=== PATIENT | female | born 1950 | race Caucasian/White ===

== ENCOUNTER 2019-07-30 14:00 | Outpatient (RCR) | payer MEDICARE, OTHER ==
[~2019-07-30 14:00] MED LIST: ALEVE220 M1; ASPIR-LOW81 MG PO; BENADRYL25 M1 PO; CINNAMON500 MG PO; CLONAZEPAM0.5 MG PO; CRESTOR5 MG PO; CYCLOBENZAPRINE5 MG PO; INVOKANA PO; LEXAPRO10 MG PO; LIPITOR20 MG PO; LISINOPRIL10 MG PO; LISINOPRIL2.5 MG PO; METFORMIN HCL500 MG PO; OMEPRAZOLE20 M1 PO; PANTOPRAZOLE SO20 MG PO; TRIAMTERENE; TURMERIC1 GM PO; TYLENOL PO; TYLENOL WITH C1 EACH PO; XARELTO10 MG PO
== END 2019-07-31 ==
LOC: PT 14:00
PROVIDERS: ATTEND Specialist
DX: M25.551 Pain in right hip (principal); M25.651 Stiffness of right hip, not elsewhere classified; M62.81 Muscle weakness (generalized); R26.9 Unspecified abnormalities of gait and mobility

== ENCOUNTER 2019-08-17 14:00 | Outpatient (RCR) | payer MEDICARE, OTHER | END 2019-08-31 | LOC: PT 14:00 | PROVIDERS: ATTEND Specialist | DX: M70.71 Other bursitis of hip, right hip (principal); S72.001A Fracture of unspecified part of neck of right femur, initial encounter for closed fracture | CPT/HCPCS: 97139 ==

== ENCOUNTER 2020-01-05 13:21 | Inpatient (IN) | payer MEDICARE, OTHER ==
[~2020-01-05] VITALS: Ht 162.6 cm; Wt 70.8 kg
[2020-01-05] MEDS ORDERED: MORPHINE SULFATE 2 MG/ML SYR 1ML IV STA (13:59)
[2020-01-05] MEDS ORDERED: ONDANSETRON HCL INJ 2MG/ML 2ML 2 MG/ML VIAL IV STA (13:59)
[2020-01-05 14:14] LABS: BASOPHILS # (AUTO) 0.1 (0.0-0.1); BASOPHILS % 0.5 % (0.0-1.0); EOSINOPHILS % 0.1 % (0.0-6.0); HEMOGLOBIN 11.1 g/dL (12.0-16.0); LYMPHOCYTES # (AUTO) 1.3 (1.0-3.2); LYMPHOCYTES % 7.5 % (18.0-39.1); MEAN CORPUSCULAR HEMOGLOBIN 26.3 pg (28-32); MEAN CORPUSCULAR HGB CONC 32.6 g/dL (31-35); MEAN CORPUSCULAR VOLUME 80.6 fL (81-99); MONOCYTES # (AUTO) 0.5 (0.2-0.8); MONOCYTES % 2.8 % (4.4-11.3); NEUTROPHILS # (AUTO) 15.3 (2.1-6.9); NEUTROPHILS % 88.6 % (38.7-80.0); PLATELET COUNT 271 x10e3/uL (140-360); RED BLOOD COUNT 4.22 x10e6/uL (3.6-5.1); RED CELL DISTRIBUTION WIDTH 15.1 % (11.7-14.4)
--- OUTSIDE RECORDS SUMMARY | 2020-01-05 14:25 | XMS REPORT | Continuity of Care Document ---
Author Author [facility] t Organization [facility] Address [address] [place] [address] Phone Unavailable Care Team Providers Care Health And Wellness Advisor Name Role Phone NORAH BOSWELL DO PCP LUPILLO RUDOLPH Attdurans Unavailable BUDDY MAY Attphys Unavailable LUPILLO RUDOLPH Admphys Unavailable Payers Payer Name Policy Type Policy Number Effective Date Expiration Date S cathy Miscellaneous Ppo [id number] 2019 00:00:00 [facility] Medicare A & B [id number] 2013 00:00:00 [facility] Miscellaneous Indemnity [id number] 2019 00:00:00 [facility] Problems Condition Name Condition Details Condition Category Status Onset Date Resolution Date Last Treatment Date Treating Clinician Comments Source Diabetes mellitus Diabetes Problem Active [facility] Fall Fall Problem Active [facility] Closed intertrochanteric fracture of femur Intertrochanteric fx- closed Problem Active [facility] Allergies, Adverse Reactions, Alerts Allergy Name Allergy Type Status Severity Reaction(s) Onset Date Inacti ve Date Treating Clinician Comments Source codeine DA Active U 2014-01-03 00:00:00 [facility] penicillin G DA Active U 2014-01-03 00:00:00 [facility] Penicillin Allergy to Substance Active 2013-11-18 00:00:00 [facility] Codeine Allergy to Substance Active Mild ITCHY 2013-11-18 00:00:00 [facility] Medications Ordered Medication Name Filled Medication Name Start Date Stop Da te Current Medication? Ordering Clinician Indication Dosage Frequency Signature (SIG) Comments Components Source Acetaminophen With Codeine (Tylenol With Codeine #3 Ta blet) 1 Each Tablet Acetaminophen With Codeine (Tylenol With Codeine #3 Tablet) 1 Each Tablet Yes 300 Q4-6 as needed for Mild Pain (1-3) Or Fe edwina>100.8 [facility] Atorvastatin Calcium (Lipitor) 20 Mg Tablet Atorvastat in Calcium (Lipitor) 20 Mg Tablet Yes 20 Bedtime [facility] Cinnamon Bark (Cinnamon) 500 Mg Capsule Cinnamon Bark (Cinna mon) 500 Mg Capsule Yes 500 Every 12 Hours [facility] Clonazepam 0.5 Mg Tablet Clonazepam 0.5 Mg Tablet Yes .5 Bedtime [facility] Diphenhydramine Hcl (Benadryl) 25 Mg Capsule Diphenhyd ramine Hcl (Benadryl) 25 Mg Capsule Yes 25 Every 6 Hours as needed for Itching [facility] Diphenhydramine Hcl (Benadryl) 25 Mg Capsule Diphenhyd ramine Hcl (Benadryl) 25 Mg Capsule Yes 25 Use As Directed as needed f or Itching [facility] Escitalopram Oxalate (Lexapro) 10 Mg Tablet Escitalopr am Oxalate (Lexapro) 10 Mg Tablet Yes 10 Daily [facility] Lisinopril 10 Mg Tablet Lisinopril 10 Mg Tablet Yes 10 Daily [facility] Metformin Hcl 500 Mg Tablet Metformin Hcl 500 Mg Tablet Yes 500 Twice A Day [facility] Pantoprazole Sodium 20 Mg Tablet. Pantoprazole Sodium 20 Mg Tablet. Yes 40 Daily@0600 [facility] Rivaroxaban (Xarelto) 10 Mg Tablet Rivaroxaban (Xarelto) 10 Mg Tablet Yes 10 Daily [facility] Triamterene Triamterene Yes 75 C HI [facility] Turmeric 1 Gm Powder, 750 Mg Oral Turmeric 1 Gm Powder, 750 Mg O ral 2019-06-07 00:00:00 No 750 Daily [facility] Cyclobenzaprine Hcl (Flexeril) 5 Mg Tablet, 5 Mg Oral Cyclobenzaprine Hcl (Flexeril) 5 Mg Tablet, 5 Mg Oral 2019-04-05 00:00:00 No 5 Daily [facility] Invokana , 100 Mg Oral Invokana , 100 Mg Oral 2019-04-05 00:00:0 0 No 100 Daily [facility] Omeprazole 20 Mg Tablet., 20 Mg Oral Omeprazole 20 Mg Tablet.vazquez savage, 20 Mg Oral 2019-04-05 00:00:00 No 20 Daily [facility] Tylenol , 500 Mg Oral Tylenol , 500 Mg Oral 2019-04-05 00:00:00 No [address] [facility] Rosuvastatin Calcium (Crestor) 5 Mg Tablet, 5 Mg Oral Rosuvastatin Calcium (Crestor) 5 Mg Tablet, 5 Mg Oral 2016-03-15 00:00:00 No 5 Daily [facility] Aspirin (Aspir-Low) 81 Mg Tablet., 81 Mg Oral Aspiri n (Aspir-Low) 81 Mg Tablet., 81 Mg Oral 2014-04-18 00:00:00 No 81 Da marquise [facility] Lisinopril 2.5 Mg Tablet, 2.5 Mg Oral Lisinopril 2.5 Mg Tablet, 2.5 Mg Oral 2014-04-18 00:00:00 No 2.5 Daily [facility] Naproxen Sodium (Aleve) 220 Mg Capsule, Naproxen Sodium (Leana ve) 220 Mg Capsule, 2014-04-18 00:00:00 No Twice A Day [facility] Procedures Procedure Date / Time Performed Performing Clinician [facility] e REMOVAL OF SUPPORT IMPLANT 2019-06-09 00:00:00 LUPILLO RUDOLPH [facility] X-ray of chest, two views 2019-04-05 00:00:00 LUPILLO RUDOLPH [facility] Encounters Start Date/Time End Date/Time Encounter Type Admission Type [facility] Care Department Encounter ID Source 2019-08-02 14:32:00 2019-08-31 23:59:00 Discharged Recurring [facility] [id number] [facility] 2019-07-22 13:12:00 2019-07-31 23:59:00 Discharged Recurring [facility] [id number] [facility] 2019-06-09 09:16:00 2019-06-10 15:06:00 Discharged Inpatient (obs) 3 LUPILLO RUDOLPH [facility] [id number] [facility] 2019-04-05 05:00:00 2019-04-05 05:00:00 Registered Clinic 3 LUPILLO RUDOLPH [facility] [id number] [facility] Results Test Description Test Time Test Comments Results Result Comments Source SCR MAMM BILATERAL SHAMIKA CAD DIGITAL 2019-12-29 08:42:58 - SCR MAMM BILATERAL SHAMIKA CAD DIGITALBILATERAL DIGITAL SCREENING MAMMOGRAM 3D/2D WITH CAD: 12/28/2019CLINICAL: Asymptomatic. Digital breast tomosynthesis was performed in addition to routine CC and MLO views. Current mammographic images were evaluated by either a Power Content M-Vu or a Summify ImageChecker CAD (computer aided detection system). Comparison is made to exams dated 10/02/2018 mammogram, 2017 mammogram, and 08/07/2016 mammogram - [facility]. There are scattered fibroglandular tissues in both breasts. No suspicious mass, architectural distortion, malignant type calcification, or lymph node abnormality detected. Breast architecture is stable compared to prior exams.IMPRESSION: NEGATIVEThere is no mammographic evidence of malignancy. Resume annual screening mammography in one year. Bolivar Jackson M.D. ss/penrad:12/29/2019 08:42:58 Gluing Pressman: Isabella PINTO, [facility] sent: BIRADS 1-2 Normal Mammogram BI-RADS: 1 Nega tive Bedside Glucose 2019-06-10 17:28:00 Test Item Bedside Glucose (test code = 79750-9) 127 70-120 H Meter ID: [id number] Glucose 2019-06-10 17:28:00* Test Item Value Reference Range Interpretation Comments Bedside Glucose (test code = 69327-8) 127 70-120 H Meter ID: [id number] [facility] Glucose 2019-06-10 07:51:00* Test Item Value Reference Range Interpretation Comments Bedside Glucose (test code = 29259-2) 121 70-120 H Meter ID: [id number] [facility]Hemoglobin2020-01-09 06:10:00* Test Item Value Reference Range Interpretation Comments Hemoglobin (test code = 76175-2) 8.6 12.0-16.0 L [facility]ematocrit2020-01-09 06:10:00* Test Item Value Reference Range Interpretation Comments Hematocrit (test code = 4544-3) 27.4 34.2-44.1 L [facility]Hemoglobin2020-01-09 06:10:00* Test Item Value Reference Range Interpretation Comments Hemoglobin (test code = 59450-7) 8.6 12.0-16.0 L [facility]Hematocrit2020-01-09 06:10:00* Test Item Value Reference Range Interpretation Comments Hematocrit (test code = 4544-3) 27.4 34.2-44.1 L [facility]Hemoglobin2020-01-09 06:10:00* Test Item Value Reference Range Interpretation Comments Hemoglobin (test code = 16548-2) 8.6 12.0-16.0 L [facility]Hematocrit2020-01-09 06:10:00* Test Item Value Reference Range Interpretation Comments Hematocrit (test code = 4544-3) 27.4 34.2-44.1 L [facility]HIP RIGHT 2-3 VW (+/- PELVIS)2019-06-09 12:28:00 [place] [address] Patient Name: PARTH KHANNA V MR #: [id number] : 1950 Age/Sex: 68/F Req #: [id number] Adm Physician: LUPILLO RUDOLPH MD Ordered by: LUPILLO RUDOLPH MD Report #: [id number] Location: PACU V Room/Bed: PACU-1 Procedure: 0108-0 021 DX/HIP RIGHT 2-3 VW (+/- PELVIS) Exam Date: Time: REPORT STATUS: Signed R ight hip, 2 views Clinical indication: Postop evaluation Comparison: N o comparisons available for review Impression: Patient is status post rem oval of a right gamma nail. No acute fracture is identified. Signed by: Simone Joel MD on 06/09/2019 12:29 PM Dictated By: SANNA JOEL MD 1229 Transcribed By: JAYSON on 06/09/19 1229 COPY TO: LUPILLO RUDOLPH MD Sodium Level 2019-06-07 16:56:00* Test Item Value Reference Range Interpretation Comments Sodium Level (test code = 2951-2) 136 136-145 [facility]assium Xbgtx9726-45-50 16:56:00* Test Item Value Reference Range Interpretation Comments Potassium Level (test code = 2823-3) 4.2 3.5-5.1 [facility]Chloride Hifrf7207-91-80 16:56:00* Test Item Value Reference Range Interpretation Comments Chloride Level (test code = 2075-0) 99 98-107 [facility]landsCarbon Dioxide Wuucj6394-60-15 16:56:00* Test Item Value Reference Range Interpretation Comments Carbon Dioxide Level (test code = 2028-9) 25 22-29 [facility]landsAnion Idm9135-66-80 16:56:00* Test Item Value Reference Range Interpretation Comments Anion Gap (test code = 25258-7) 16.2 8-16 H [facility]landsBlood Urea Umqhtdgt7842-26-38 16:56:00* Test Item Value Reference Range Interpretation Comments Blood Urea Nitrogen (test code = 3094-0) 38 7-26 H [facility]landsCreatinine2020-01-06 16:56:00* Test Item Value Reference Range Interpretation Comments Creatinine (test code = 2160-0) 1.50 0.57-1.11 H [facility]landsBUN/Creatinine Kakei9945-01-23 16:56:00* Test Item Value Reference Range Interpretation Comments BUN/Creatinine Ratio (test code = 3097-3) 25 6-25 [facility]landsEstimat Glomerular Filtration Rate 2019-06-07 16:56:00* Test Item Value Reference Range Interpretation Comments Estimat Glomerular Filtration Rate (test code = 560302859) 34 >60 L Ranges were taken from the National Kidney Disease Education Program and the [facility] [employer] literature.Reference ranges:60 or greater: Nwpvrb98-84 ( for 3 consecutive months): Chronic kidney disease 15 or less: Kidney failureTexas Children's Hospital The [facility]landsGlucose Gvlve9981-09-13 16:56:00* Test Item Value Reference Range Interpretation Comments Glucose Level (test code = RRI4150) 179 74-118 H [facility]landsCalcium Thqfy9654-19-55 16:56:00* Test Item Value Reference Range Interpretation Comments Calcium Level (test code = 91609-2) 9.6 8.4-10.2 [facility] Texasodium Hvxrm3679-44-32 16:56:00* Test Item Value Reference Range Interpretation Comments Sodium Level (test code = 2951-2) 136 136-145 [facility]Potassium Wblyq2787-41-18 16:56:00* Test Item Value Reference Range Interpretation Comments Potassium Level (test code = 2823-3) 4.2 3.5-5.1 [facility]landsChloride Sumcw0164-23-43 16:56:00* Test Item Value Reference Range Interpretation Comments Chloride Level (test code = 2075-0) 99 98-107 [facility]landsCarbon Dioxide Clgas2239-39-52 16:56:00* Test Item Value Reference Range Interpretation Comments Carbon Dioxide Level (test code = 2028-9) 25 22-29 [facility]landsAnion Iew8155-64-65 16:56:00* Test Item Value Reference Range Interpretation Comments Anion Gap (test code = 15259-6) 16.2 8-16 H [facility]landsBlood Urea Uwmtcips7919-02-01 16:56:00* Test Item Value Reference Range Interpretation Comments Blood Urea Nitrogen (test code = 3094-0) 38 7-26 H [facility]landsCreatinine2020-01-06 16:56:00* Test Item Value Reference Range Interpretation Comments Creatinine (test code = 2160-0) 1.50 0.57-1.11 H [facility]landsBUN/Creatinine Orytt0488-65-03 16:56:00* Test Item Value Reference Range Interpretation Comments BUN/Creatinine Ratio (test code = 3097-3) 25 6-25 [facility]landsEstimat Glomerular Filtration Rate 2019-06-07 16:56:00* Test Item Value Reference Range Interpretation Comments Estimat Glomerular Filtration Rate (test code = 648895310) 34 >60 L Ranges were taken from the National Kidney Disease Education Program and the [facility] [employer] literature.Reference ranges:60 or greater: Wievzs65-63 ( for 3 consecutive months): Chronic kidney disease 15 or less: Kidney failureTexas Children's Hospital [facility]landsGlucose Snhwd6564-67-95 16:56:00* Test Item Value Reference Range Interpretation Comments Glucose Level (test code = GIC5377) 179 74-118 H [facility]landsCalcium Eqosk9243-68-48 16:56:00* Test Item Value Reference Range Interpretation Comments Calcium Level (test code = 85634-9) 9.6 8.4-10.2 [facility] Texasodium Osxdw2993-32-01 16:56:00* Test Item Value Reference Range Interpretation Comments Sodium Level (test code = 2951-2) 136 136-145 [facility]Potassium Ujaiu1295-31-68 16:56:00* Test Item Value Reference Range Interpretation Comments Potassium Level (test code = 2823-3) 4.2 3.5-5.1 [facility]landsChloride Uarhs2501-39-02 16:56:00* Test Item Value Reference Range Interpretation Comments Chloride Level (test code = 2075-0) 99 98-107 [facility]landsCarbon Dioxide Hzczh4451-60-71 16:56:00* Test Item Value Reference Range Interpretation Comments Carbon Dioxide Level (test code = 2028-9) 25 22-29 [facility]landsAnion Kkb8786-57-24 16:56:00* Test Item Value Reference Range Interpretation Comments Anion Gap (test code = 86324-4) 16.2 8-16 H [facility]landsBlood Urea Tnpfjcya3631-54-29 16:56:00* Test Item Value Reference Range Interpretation Comments Blood Urea Nitrogen (test code = 3094-0) 38 7-26 H [facility]landsCreatinine2020-01-06 16:56:00* Test Item Value Reference Range Interpretation Comments Creatinine (test code = 2160-0) 1.50 0.57-1.11 H [facility]landsBUN/Creatinine Oqmek6456-35-75 16:56:00* Test Item Value Reference Range Interpretation Comments BUN/Creatinine Ratio (test code = 3097-3) 25 6-25 [facility]landsEstimat Glomerular Filtration Rate 2019-06-07 16:56:00* Test Item Value Reference Range Interpretation Comments Estimat Glomerular Filtration Rate (test code = 720081599) 34 >60 L Ranges were taken from the National Kidney Disease Education Program and the [facility] literature.Reference ranges:60 or greater: Mazmyw91-62 ( for 3 consecutive months): Chronic kidney disease 15 or less: Kidney failureTexas Children's Hospital The WoodlandsGlucose Gkxay5271-92-38 16:56:00* Test Item Value Reference Range Interpretation Comments Glucose Level (test code = XDH4712) 179 74-118 H [facility]landsCalcium Ehiit0423-82-18 16:56:00* Test Item Value Reference Range Interpretation Comments Calcium Level (test code = 76249-8) 9.6 8.4-10.2 [facility]landsWhite Blood Vnyzu8861-47-57 16:55:00* Test Item Value Reference Range Interpretation Comments White Blood Count (test code = 6690-2) 5.73 4.8-10.8 [facility]landsRed Blood Bdlil7041-07-18 16:55:00* Test Item Value Reference Range Interpretation Comments Red Blood Count (test code = 789-8) 4.57 3.6-5.1 [facility]landsMean Corpuscular Fteqbs1632-04-90 16:55:00* Test Item Value Reference Range Interpretation Comments Mean Corpuscular Volume (test code = 787-2) 83.6 81-99 [facility]landsMean Corpuscular Eozmjmwjbi6052-51-68 16:55:00* Test Item Value Reference Range Interpretation Comments Mean Corpuscular Hemoglobin (test code = 785-6) 26.7 28-32 L [facility]landsMean Corpuscular Hemoglobin Concent 2019-06-07 16:55:00* Test Item Value Reference Range Interpretation Comments Mean Corpuscular Hemoglobin Concent (test code = 786-4) 31.9 31-35 [facility]landsRed Cell Distribution Cqhif4495-83-95 16:55:00* Test Item Value Reference Range Interpretation Comments Red Cell Distribution Width (test code = 12016-1) 15.8 11.7 -14.4 H [facility]landsPlatelet Fykvh3228-32-24 16:55:00* Test Item Value Reference Range Interpretation Comments Platelet Count (test code = 777-3) 247 140-360 [facility]landsNeutrophils (%) (Auto)2019-06-07 16:55:00 * Test Item Value Reference Range Interpretation Comments Neutrophils (%) (Auto) (test code = 59079-1) 57.8 38.7-80.0 [facility]landsLymphocytes (%) (Auto)2019-06-07 16:55:00 * Test Item Value Reference Range Interpretation Comments Lymphocytes (%) (Auto) (test code = 736-9) 34.7 18.0-39.1 [facility]landsMonocytes (%) (Auto)2019-06-07 16:55:00* Test Item Value Reference Range Interpretation Comments Monocytes (%) (Auto) (test code = 5905-5) 5.8 4.4-11.3 [facility]landsEosinophils (%) (Auto)2019-06-07 16:55:00 * Test Item Value Reference Range Interpretation Comments Eosinophils (%) (Auto) (test code = 713-8) 0.9 0.0-6.0 [facility]landsBasophils (%) (Auto)2019-06-07 16:55:00* Test Item Value Reference Range Interpretation Comments Basophils (%) (Auto) (test code = 706-2) 0.5 0.0-1.0 [facility]landsIM GRANULOCYTES %2019-06-07 16:55:00* Test Item Value Reference Range Interpretation Comments IM GRANULOCYTES % (test code = IM GRANULOCYTES %) 0.3 0.0- 1.0 [facility]landsNeutrophils # (Auto)2019-06-07 16:55:00* Test Item Value Reference Range Interpretation Comments Neutrophils # (Auto) (test code = 751-8) 3.3 2.1-6.9 [facility]landsLymphocytes # (Auto)2019-06-07 16:55:00* Test Item Value Reference Range Interpretation Comments Lymphocytes # (Auto) (test code = 05734-9) 2.0 1.0-3.2 [facility]landsMonocytes # (Auto)2019-06-07 16:55:00* Test Item Value Reference Range Interpretation Comments Monocytes # (Auto) (test code = 742-7) 0.3 0.2-0.8 [facility]landsEosinophils # (Auto)2019-06-07 16:55:00* Test Item Value Reference Range Interpretation Comments Eosinophils # (Auto) (test code = 711-2) 0.1 0.0-0.4 [facility]Basophils # (Auto)2019-06-07 16:55:00* Test Item Value Reference Range Interpretation Comments Basophils # (Auto) (test code = 704-7) 0.0 0.0-0.1 [facility]landsAbsolute Immature Granulocyte (auto 2019-06-07 16:55:00* Test Item Value Reference Range Interpretation Comments Absolute Immature Granulocyte (auto (jp t code = Absolute Immature Granulocyte (auto) 0.02 0-0.1 [facility]landsWhite Blood Wnfua6631-95-37 16:55:00* Test Item Value Reference Range Interpretation Comments White Blood Count (test code = 6690-2) 5.73 4.8-10.8 [facility]landsRed Blood Spglc0186-79-11 16:55:00* Test Item Value Reference Range Interpretation Comments Red Blood Count (test code = 789-8) 4.57 3.6-5.1 [facility]landsMean Corpuscular Cebejc6201-68-75 16:55:00* Test Item Value Reference Range Interpretation Comments Mean Corpuscular Volume (test code = 787-2) 83.6 81-99 [facility]landsMean Corpuscular Rhzsuknyla1553-96-38 16:55:00* Test Item Value Reference Range Interpretation Comments Mean Corpuscular Hemoglobin (test code = 785-6) 26.7 28-32 L [facility]landsMean Corpuscular Hemoglobin Concent 2019-06-07 16:55:00* Test Item Value Reference Range Interpretation Comments Mean Corpuscular Hemoglobin Concent (test code = 786-4) 31.9 31-35 [facility]landsRed Cell Distribution Bmapz3164-88-92 16:55:00* Test Item Value Reference Range Interpretation Comments Red Cell Distribution Width (test code = 91408-6) 15.8 11.7 -14.4 H [facility]landsPlatelet Xuolt8504-89-53 16:55:00* Test Item Value Reference Range Interpretation Comments Platelet Count (test code = 777-3) 247 140-360 [facility]landsNeutrophils (%) (Auto)2019-06-07 16:55:00 * Test Item Value Reference Range Interpretation Comments Neutrophils (%) (Auto) (test code = 78762-8) 57.8 38.7-80.0 [facility]landsLymphocytes (%) (Auto)2019-06-07 16:55:00 * Test Item Value Reference Range Interpretation Comments Lymphocytes (%) (Auto) (test code = 736-9) 34.7 18.0-39.1 [facility]landsMonocytes (%) (Auto)2019-06-07 16:55:00* Test Item Value Reference Range Interpretation Comments Monocytes (%) (Auto) (test code = 5905-5) 5.8 4.4-11.3 [facility]landsEosinophils (%) (Auto)2019-06-07 16:55:00 * Test Item Value Reference Range Interpretation Comments Eosinophils (%) (Auto) (test code = 713-8) 0.9 0.0-6.0 [facility]landsBasophils (%) (Auto)2019-06-07 16:55:00* Test Item Value Reference Range Interpretation Comments Basophils (%) (Auto) (test code = 706-2) 0.5 0.0-1.0 [facility]landsIM GRANULOCYTES %2019-06-07 16:55:00* Test Item Value Reference Range Interpretation Comments IM GRANULOCYTES % (test code = IM GRANULOCYTES %) 0.3 0.0- 1.0 [facility]landsNeutrophils # (Auto)2019-06-07 16:55:00* Test Item Value Reference Range Interpretation Comments Neutrophils # (Auto) (test code = 751-8) 3.3 2.1-6.9 [facility]landsLymphocytes # (Auto)2019-06-07 16:55:00* Test Item Value Reference Range Interpretation Comments Lymphocytes # (Auto) (test code = 67905-6) 2.0 1.0-3.2 [facility]landsMonocytes # (Auto)2019-06-07 16:55:00* Test Item Value Reference Range Interpretation Comments Monocytes # (Auto) (test code = 742-7) 0.3 0.2-0.8 [facility]Eosinophils # (Auto)2019-06-07 16:55:00* Test Item Value Reference Range Interpretation Comments Eosinophils # (Auto) (test code = 711-2) 0.1 0.0-0.4 [facility]Basophils # (Auto)2019-06-07 16:55:00* Test Item Value Reference Range Interpretation Comments Basophils # (Auto) (test code = 704-7) 0.0 0.0-0.1 [facility]landsAbsolute Immature Granulocyte (auto 2019-06-07 16:55:00* Test Item Value Reference Range Interpretation Comments Absolute Immature Granulocyte (auto (jp t code = Absolute Immature Granulocyte (auto) 0.02 0-0.1 [facility]landsWhite Blood Zyloc6860-28-80 16:55:00* Test Item Value Reference Range Interpretation Comments White Blood Count (test code = 6690-2) 5.73 4.8-10.8 [facility]landsRed Blood Nzvjy5223-30-02 16:55:00* Test Item Value Reference Range Interpretation Comments Red Blood Count (test code = 789-8) 4.57 3.6-5.1 [facility] Corpuscular [id number] 16:55:00* Test Item Value Reference Range Interpretation Comments Mean Corpuscular Volume (test code = 787-2) 83.6 81-99 [facility] Corpuscular [id number] 16:55:00* Test Item Value Reference Range Interpretation Comments Mean Corpuscular Hemoglobin (test code = 785-6) 26.7 28-32 L [facility] Corpuscular Hemoglobin Concent 2019-06-07 16:55:00* Test Item Value Reference Range Interpretation Comments Mean Corpuscular Hemoglobin Concent (test code = 786-4) 31.9 31-35 [facility] Cell Distribution [id number] 16:55:00* Test Item Value Reference Range Interpretation Comments Red Cell Distribution Width (test code = 19783-8) 15.8 11.7 -14.4 H [facility]landsPlatelet [id number] 16:55:00* Test Item Value Reference Range Interpretation Comments Platelet Count (test code = 777-3) 247 140-360 [facility]landsNeutrophils (%) (Auto)2019-06-07 16:55:00 * Test Item Value Reference Range Interpretation Comments Neutrophils (%) (Auto) (test code = 24665-1) 57.8 38.7-80.0 [facility]landsLymphocytes (%) (Auto)2019-06-07 16:55:00 * Test Item Value Reference Range Interpretation Comments Lymphocytes (%) (Auto) (test code = 736-9) 34.7 18.0-39.1 [facility]ocytes (%) (Auto)2019-06-07 16:55:00* Test Item Value Reference Range Interpretation Comments Monocytes (%) (Auto) (test code = 5905-5) 5.8 4.4-11.3 [facility]Eosinophils (%) (Auto)2019-06-07 16:55:00 * Test Item Value Reference Range Interpretation Comments Eosinophils (%) (Auto) (test code = 713-8) 0.9 0.0-6.0 [facility]ophils (%) (Auto)2019-06-07 16:55:00* Test Item Value Reference Range Interpretation Comments Basophils (%) (Auto) (test code = 706-2) 0.5 0.0-1.0 [facility]landsIM GRANULOCYTES %2019-06-07 16:55:00* Test Item Value Reference Range Interpretation Comments IM GRANULOCYTES % (test code = IM GRANULOCYTES %) 0.3 0.0- 1.0 [facility]landsNeutrophils # (Auto)2019-06-07 16:55:00* Test Item Value Reference Range Interpretation Comments Neutrophils # (Auto) (test code = 751-8) 3.3 2.1-6.9 [facility]landsLymphocytes # (Auto)2019-06-07 16:55:00* Test Item Value Reference Range Interpretation Comments Lymphocytes # (Auto) (test code = 40000-3) 2.0 1.0-3.2 [facility]landsMonocytes # (Auto)2019-06-07 16:55:00* Test Item Value Reference Range Interpretation Comments Monocytes # (Auto) (test code = 742-7) 0.3 0.2-0.8 [facility]Eosinophils # (Auto)2019-06-07 16:55:00* Test Item Value Reference Range Interpretation Comments Eosinophils # (Auto) (test code = 711-2) 0.1 0.0-0.4 [facility]Basophils # (Auto)2019-06-07 16:55:00* Test Item Value Reference Range Interpretation Comments Basophils # (Auto) (test code = 704-7) 0.0 0.0-0.1 [facility]landsAbsolute Immature Granulocyte (auto 2019-06-07 16:55:00* Test Item Value Reference Range Interpretation Comments Absolute Immature Granulocyte (auto (jp t code = Absolute Immature Granulocyte (auto) 0.02 0-0.1 [facility]landsCHEST 2 [id number] 15:33:00 [facility] [address] [place] [address] Patient Name: PARTH KHANNA V MR #: [id number] : 1950 Age/Sex: 68/F Req #: [id number] Adm Physician: Ordered by: LUPILLO RUDOLPH MD Report #: [id number] Location: OR Room/Bed: Procedure: 1104-006 4 DX/CHEST 2 VIEWS Exam Date: 04/05/19 Exam Time: 14 43 REPORT STATUS: Signed EXAMINA TION: CHEST 2 VIEWS INDICATION: Pre-operative COMPARISON: Chest r adiograph of 03/05/2017 FINDINGS: LINES/TUBES:None LUNGS:The lungs are well-inflated. No focal consolidation or pulmonary edema. PLEURA: No pleural effusion or pneumothorax. MEDIASTINUM:The cardiomediastinal silh ouette appears normal in size and shape. BONES/SOFT TISSUES:No acute osseou s injury. ABDOMEN:No free air under the diaphragm. IMPRESSION: N o focal pneumonia or pulmonary edema. Signed by: Perez Salgado MD on 9 3:34 PM Dictated By: PEREZ SALGADO MD 33 Transcribed By: JAYSON on 04/05/191533 COPY TO: LUPILLO RUDOLPH MD FALLOPIAN [id number] 16:28:00 RUN DATE: 10/07/18 [facility] PAGE 1 RUN TIME: 1628 Specimen Inqui sonal RUN USER: INTERFACE PATIENT: PARTH KHANNA ACCT #: [id number] LOC: [facility] U #: [id number] AGE/SX: 67/F ROOM: 2024 RE10/06/18REG DR: Mona Carcamo MD : 46 BED: A DIS: 10/07/18 STATUS: DIS Panda TLOC: SPEC #: [id number] RECD: 10/06/18 STATUS: SOUT REQ #: [id number] DONATO: 10/06/18- SUBM DR: Mona Carcamo ENTERED: 10/06/18 SP TYPE: FALL TUBE OTHR DR: Buddy May MD ORDERED: GROSS COPIES TO: Buddy May MD [address], [place] [address] Mona Carcamo MD [address] [facility], [facility] [address] [place] [address] PROCEDURES: GROSS (-1324) TISSUES: FALLOPIAN TUBE, NOS - BILATERAL TUBES AND OVARIES CLINICAL HISTORY COLLECTION DATE: 10/06/2018 FINAL DIAGNOSIS Bilateral fallopian tubes and ovaries, bilateral salpingo-oophorectomy: B ILATERAL OVARIES WITH ATROPHIC CHANGE BILATERAL FIMBRIATED AND TRANSECTED FALLOPIAN TUBES WITH ATROPHIC CHANGE NEGATIVE FOR MALIGNANCY RRB/sm D [phone] MACROSCOPIC The specimen is labeled "bilateral fallopian tubes and ovaries". It consists of two ovaries with max ched fallopian tubes with no orientation. One ovary measures 2.0 x 1.2 x 0.5 cm with an attached fimbriated end fallopian tube measuring 2.5 cm in length b y 0.6 cm in diameter. Serial sectioning reveals no focal abnormality. The ot her ovary measures 2.5 x 1.5 x 0.7 cm with an attached fimbriated end fallopia n tube measuring 2.5 cm in length by up to 0.8 cm in diameter. Serial sectio madhuri reveals corpora albicantia. The CONTINUE D ON NEXT PAGE RUN DATE: 10/07/18 [facility] PAGE 2 RUN TIME: 1628 Specimen Inquiry RUN USER: INTERFACE SPEC #: [id number] KEIRY ENT: PARTH KHANNA #[id number] (Continued) MACROSCOPIC (Continued) fallopian tube is unremarkable appea ring. Section code: 1A-1B- sections from one ovary and fallopian tube; 1C-1D- sections from other fallopian tube and ovary. The first ovary and fallopian tube is entirely submitted. GROSS PERFORMED AT [facility] [address] [place] [address] [phone])[phone] MICROSCOPIC All of the stains, incl uding any controls performed, stain appropriately. MICROSCOPIC PERFORMED A T [facility] [address] [place] [address] [phone])[phone] PERFORMING SITE Diagnosis perfo rmed at: [facility] [place] [address] [place], [place] [address] Signed SIGNATURE ON FILE David Raymond MD 10/07/18 1628 END OF REPORT CBC W/AUTO [id number] 09:53:00* Test Item Value Reference Range Interpretation Comments WHITE BLOOD CELL (test code = WBC) 8.1 K/mm3 4.5-12.5 N RED BLOOD CELL (test code = RBC) 3.59 mill/mm3 3.7-5.2 L HEMOGLOBIN (test code = HGB) 10.0 gram/dL 11.5-15.5 L HEMATOCRIT (test code = HCT) 31.7 % 36.0-46.0 L MEAN CELL VOLUME (test code = MCV) 88.3 fL 80-98 N MEAN CELL HGB (test code = MCH) 27.9 picogram 27.0-33.0 N MEAN CELL HGB CONCETRATION (test code = MCHC) 31.5 gram/dL 33.0-36. 0 L RED CELL DISTRIBUTION WIDTH (test code = RDW) 13.7 % 11.6-16. 2 N RED CELL DISTRIBUTION WIDTH SD (test code = RDW-SD) 43.8 fL 37 .0-51.0 N PLATELET COUNT (test code = PLT) 197 K/mm3 150-450 N MEAN PLATELET VOLUME (test code = MPV) 9.7 fL 6.7-11.0 N NEUTROPHIL % (test code = NT%) 69.2 % 39.0-69.0 H IMMATURE GRANULOCYTE % (test code = IG%) 0.2 % 0.0-5.0 N LYMPHOCYTE % (test code = LY%) 24.7 % 25.0-55.0 L MONOCYTE % (test code = MO%) 5.3 % 0.0-10.0 N EOSINOPHIL % (test code = EO%) 0.2 % 0.0-5.0 N BASOPHIL % (test code = BA%) 0.4 % 0.0-1.0 N NUCLEATED RBC % (test code = NRBC%) 0.0 % 0-0 N NEUTROPHIL # (test code = NT#) 5.61 K/mm3 1.8-7.7 N IMMATURE GRANULOCYTE # (test code = IG#) 0.02 x10 3/uL 0-0.03 N LYMPHOCYTE # (test code = LY#) 2.00 K/mm3 1.0-5.0 N MONOCYTE # (test code = MO#) 0.43 K/mm3 0-0.8 N EOSINOPHIL # (test code = EO#) 0.02 K/mm3 0.0-0.5 N BASOPHIL # (test code = BA#) 0.03 K/mm3 0.0-0.2 N NUCLEATED RBC # (test code = NRBC#) 0.00 K/mm3 0.0-0.1 N MANUAL DIFF REQUIRED (test code = MDIFF) NO [id number] 08:03:00* Test Item Value Reference Range Interpretation Comments GLUBED (test code = GLUBED) 129 mg/dL 74-106 H Performed by certified pile driver operator helper at [facility] [id number] 20:48:00* Test Item Value Reference Range Interpretation Comments GLUBED (test code = GLUBED) 287 mg/dL 74-106 H Performed by certified pile driver operator helper at [facility] [id number] 11:08:00* Test Item Value Reference Range Interpretation Comments GLUBED (test code = GLUBED) 158 mg/dL 74-106 H Performed by certified pile driver operator helper at [facility] [id number] 07:52:00* Test Item Value Reference Range Interpretation Comments GLUBED (test code = GLUBED) 162 mg/dL 74-106 H Performed by certified pile driver operator helper at [facility] URINALYSIS [id number] 14:39:00* Test Item Value Reference Range Interpretation Comments UA COLOR (test code = COLU) YELLOW YELLOW UA APPEARANCE (test code = APPU) Cloudy CLEAR A UA GLUCOSE DIPSTICK (test code = DGLUU) NEGATIVE mg/dL NEGATIVE UA BILIRUBIN DIPSTICK (test code = BILU) NEGATIVE mg/dL NEGATIVE UA KETONE DIPSTICK (test code = KETU) NEGATIVE mg/dL NEGATIVE UA SPECIFIC GRAVITY (test code = SGU) 1.019 1.001-1.035 UA BLOOD DIPSTICK (test code = JAY) Negative mg/dL NEGATIVE UA PH DIPSTICK (test code = WANDER) 5.5 5.0-8.0 UA PROTEIN DIPSTICK (test code = PROU) NEGATIVE mg/dL NEGATIVE UA UROBILINIOGEN DIPSTICK (test code = URO) Normal mg/dL NEGATIVE UA NITRITE DIPSTICK (test code = FER) NEGATIVE NEGATIVE UA LEUKOCYTE ESTERASE W REFLEX (test code = LEUUR) 75 Robi/uL (1+) Robi/uL NEGATIVE A UA WBC (test code = WBCU) 6-10 per HPF 0-5 A UA RBC (test code = RBCU) 0-2 #/HPF 0-5 UA EPITHELIAL CELLS (test code = EPIU) FEW per HPF FEW UA BACTERIA (test code = BACU) MODERATE #/HPF NONE A UA MUCUS (test code = MUCU) FEW #/LPF FEW - XR CHEST 2 [id number] 14:39:00 FAX: Buddy Abdul MD [phone] [place]: O St: PRE FAX: Mona Garcia MD [phone] Name: PARTH KHANNA [facility] : 1950 Age/S: 67/F Payal Stewart Unit #: [id number] Loc: [place] [address] Phys: Mona Carcamo MD Acct: [id number] Dis Date: Status: PRE SDC PHONE #: [phone] Exam Date: 10/05/2018 1140 FAX #: [phone] Reason: PRE OP EXAMS: CPT CODE: [id number] XR CHEST 2 V 10659 HISTORY: Preop. COMPARISON: August 18, 2008. AP and lateral view of the chest: No acute infiltrates, effusion or congestion. Cardiac and the mediastinal silhouette are normal. IMPRESSION: No acute infiltrates, effusion or congestion. at 1436 Reported and signed by: Elio Malone M.D. CC: Buddy May MD; Mona Carcamo MD Technologist: RT Iliana(Meghan) Trnscrd Date/Time/By: 10/05/2018 (0670) : By: [email or web address] Orig Print D/T: S: 10/05/2018 (2201) PAGE 1 Signed Report URINALYSIS [id number] 14:34:00* Test Item Value Reference Range Interpretation Comments UA COLOR (test code = COLU) YELLOW YELLOW UA APPEARANCE (test code = APPU) Cloudy CLEAR A UA GLUCOSE DIPSTICK (test code = DGLUU) NEGATIVE mg/dL NEGATIVE UA BILIRUBIN DIPSTICK (test code = BILU) NEGATIVE mg/dL NEGATIVE UA KETONE DIPSTICK (test code = KETU) NEGATIVE mg/dL NEGATIVE UA SPECIFIC GRAVITY (test code = SGU) 1.019 1.001-1.035 UA BLOOD DIPSTICK (test code = JAY) Negative mg/dL NEGATIVE UA PH DIPSTICK (test code = WANDER) 5.5 5.0-8.0 UA PROTEIN DIPSTICK (test code = PROU) NEGATIVE mg/dL NEGATIVE UA UROBILINIOGEN DIPSTICK (test code = URO) Normal mg/dL NEGATIVE UA NITRITE DIPSTICK (test code = FER) NEGATIVE NEGATIVE UA LEUKOCYTE ESTERASE W REFLEX (test code = LEUUR) 75 Robi/uL (1+) Robi/uL NEGATIVE A UA WBC (test code = WBCU) per HPF 0-5 UA RBC (test code = RBCU) per HPF 0-5 UA EPITHELIAL CELLS (test code = EPIU) per HPF Few UA BACTERIA (test code = BACU) per HPF NONE COMPREHENSIVE METABOLIC [id number] 13:18:00* Test Item Value Reference Range Interpretation Comments SODIUM (test code = NA) 139 mmol/L 136-145 N POTASSIUM (test code = K) 4.6 mmol/L 3.5-5.1 N CHLORIDE (test code = CL) 105.0 mmol/L 98-107 N CARBON DIOXIDE (test code = CO2) 26.0 mmol/L 21-32 N ANION GAP (test code = GAP) 12.6 10-20 N GLUCOSE (test code = GLU) 166 mg/dL 74-106 H BLOOD UREA NITROGEN (test code = BUN) 25 mg/dL 7-18 H GLOMERULAR FILTRATION RATE (test code = GFR) 45 mL/min >=60 Estimated GFR by using Modified MDRD formula.Chronic kidney disease is defined as either kidney damageor GFR <60 mL/min/1.73 m2 for >3 months. CREATININE (test code = CREAT) 1.20 mg/dL 0.55-1.02 H Note change in reference range due to change in reagent. BUN/CREATININE RATIO (test code = BUN/CREA) 20.8 10-20 H TOTAL PROTEIN (test code = PROT) 7.8 gram/dL 6.4-8.2 N ALBUMIN (test code = ALB) 4.6 g/dL 3.4-5.0 N GLOBULIN (test code = GLOB) 3.2 gram/dL 2.7-4.2 N ALBUMIN/GLOBULIN RATIO (test code = A/G) 1.4 0.75-1.50 N CALCIUM (test code = CA) 9.3 mg/dL 8.5-10.1 N BILIRUBIN TOTAL (test code = BILT) 0.60 mg/dL 0.0-1.0 N SGOT/AST (test code = AST) 20 IUnit/L 15-37 N SGPT/ALT (test code = ALT) 33 IUnit/L 12-78 N ALKALINE PHOSPHATASE TOTAL (test code = ALKP) 77 IUnit/L 45-117 N Note change in reference range due to change in reagent. COMPREHENSIVE METABOLIC [id number] 13:06:00* Test Item Value Reference Range Interpretation Comments SODIUM (test code = NA) 139 mmol/L 136-145 N POTASSIUM (test code = K) 4.6 mmol/L 3.5-5.1 N CHLORIDE (test code = CL) 105.0 mmol/L 98-107 N CARBON DIOXIDE (test code = CO2) mmol/L 21-32 ANION GAP (test code = GAP) 10-20 GLUCOSE (test code = GLU) mg/dL 74-106 BLOOD UREA NITROGEN (test code = BUN) mg/dL 7-18 GLOMERULAR FILTRATION RATE (test code = GFR) mL/min >=60 CREATININE (test code = CREAT) mg/dL 0.55-1.02 BUN/CREATININE RATIO (test code = BUN/CREA) 10-20 TOTAL PROTEIN (test code = PROT) gram/dL 6.4-8.2 ALBUMIN (test code = ALB) g/dL 3.4-5.0 GLOBULIN (test code = GLOB) gram/dL 2.7-4.2 ALBUMIN/GLOBULIN RATIO (test code = A/G) 0.75-1.50 CALCIUM (test code = CA) mg/dL 8.5-10.1 BILIRUBIN TOTAL (test code = BILT) mg/dL 0.0-1.0 SGOT/AST (test code = AST) IUnit/L 15-37 SGPT/ALT (test code = ALT) IUnit/L 12-78 ALKALINE PHOSPHATASE TOTAL (test code = ALKP) IUnit/L 45-117 CBC W/AUTO [id number] 12:57:00* Test Item Value Reference Range Interpretation Comments WHITE BLOOD CELL (test code = WBC) 5.4 K/mm3 4.5-12.5 N RED BLOOD CELL (test code = RBC) 4.25 mill/mm3 3.7-5.2 N HEMOGLOBIN (test code = HGB) 11.8 gram/dL 11.5-15.5 N HEMATOCRIT (test code = HCT) 37.4 % 36.0-46.0 N MEAN CELL VOLUME (test code = MCV) 88.0 fL 80-98 N MEAN CELL HGB (test code = MCH) 27.8 picogram 27.0-33.0 N MEAN CELL HGB CONCETRATION (test code = MCHC) 31.6 gram/dL 33.0-36. 0 L RED CELL DISTRIBUTION WIDTH (test code = RDW) 13.6 % 11.6-16. 2 N RED CELL DISTRIBUTION WIDTH SD (test code = RDW-SD) 43.3 fL 37 .0-51.0 N PLATELET COUNT (test code = PLT) 229 K/mm3 150-450 N MEAN PLATELET VOLUME (test code = MPV) 9.5 fL 6.7-11.0 N NEUTROPHIL % (test code = NT%) 53.0 % 39.0-69.0 N IMMATURE GRANULOCYTE % (test code = IG%) 0.2 % 0.0-5.0 N LYMPHOCYTE % (test code = LY%) 37.3 % 25.0-55.0 N MONOCYTE % (test code = MO%) 6.5 % 0.0-10.0 N EOSINOPHIL % (test code = EO%) 1.7 % 0.0-5.0 N BASOPHIL % (test code = BA%) 1.3 % 0.0-1.0 H NUCLEATED RBC % (test code = NRBC%) 0.0 % 0-0 N NEUTROPHIL # (test code = NT#) 2.87 K/mm3 1.8-7.7 N IMMATURE GRANULOCYTE # (test code = IG#) 0.01 x10 3/uL 0-0.03 N LYMPHOCYTE # (test code = LY#) 2.02 K/mm3 1.0-5.0 N MONOCYTE # (test code = MO#) 0.35 K/mm3 0-0.8 N EOSINOPHIL # (test code = EO#) 0.09 K/mm3 0.0-0.5 N BASOPHIL # (test code = BA#) 0.07 K/mm3 0.0-0.2 N NUCLEATED RBC # (test code = NRBC#) 0.00 K/mm3 0.0-0.1 N MANUAL DIFF REQUIRED (test code = MDIFF) NO CBC W/AUTO [id number] 12:49:00* Test Item Value Reference Range Interpretation Comments WHITE BLOOD CELL (test code = WBC) K/mm3 4.5-12.5 RED BLOOD CELL (test code = RBC) mill/mm3 3.7-5.2 HEMOGLOBIN (test code = HGB) 11.8 gram/dL 11.5-15.5 N HEMATOCRIT (test code = HCT) 37.4 % 36.0-46.0 N MEAN CELL VOLUME (test code = MCV) fL 80-98 MEAN CELL HGB (test code = MCH) picogram 27.0-33.0 MEAN CELL HGB CONCETRATION (test code = MCHC) gram/dL 33.0-36. 0 RED CELL DISTRIBUTION WIDTH (test code = RDW) % 11.6-16. 2 RED CELL DISTRIBUTION WIDTH SD (test code = RDW-SD) fL 37 .0-51.0 PLATELET COUNT (test code = PLT) K/mm3 150-450 MEAN PLATELET VOLUME (test code = MPV) fL 6.7-11.0 NEUTROPHIL % (test code = NT%) % 39.0-69.0 IMMATURE GRANULOCYTE % (test code = IG%) % 0.0-5.0 LYMPHOCYTE % (test code = LY%) % 25.0-55.0 MONOCYTE % (test code = MO%) % 0.0-10.0 EOSINOPHIL % (test code = EO%) % 0.0-5.0 BASOPHIL % (test code = BA%) % 0.0-1.0 NEUTROPHIL # (test code = NT#) K/mm3 1.8-7.7 LYMPHOCYTE # (test code = LY#) K/mm3 1.0-5.0 MONOCYTE # (test code = MO#) K/mm3 0-0.8 EOSINOPHIL # (test code = EO#) K/mm3 0.0-0.5 BASOPHIL # (test code = BA#) K/mm3 0.0-0.2 CHEST 2 VIEWS [place] [address] Patient Name: PARTH KHANNA V MR #: [id number] : 1950 Age/Sex: 66/F Req #: [id number] Adm Physician: Ordered by: BUDDY MAY MD Report #: [id number] Location: [facility] Room/Bed: Procedure: [id number] DX/CHEST 2 VIEWS Exam Date: 03/05/17 Exam Time: 1320 REPORT STATUS: Signed PROCEDURE: Frontal and lateral views of the chest. COMPARISON: Chest x-ray 03/15/16. INDICATIONS: PNEUMONIA FINDINGS: Lines/tubes : None. Lungs: The lungs are well inflated and clear. There is no eviden ce of pneumonia or pulmonary edema. Pleura: There is no pleural effusi on or pneumothorax. Heart and mediastinum: The heart and the mediastinum are normal. Bones: No focal bony abnormality. IMPRESSION: No acute cardiopulmonary disease. Dictated by: Bakari Roper M.D. on 03/05/2017 at 14:31 Electronically approved by: Bakari Roper M.D. on 03/05/2017 at 14:31 Dictated By: BAKARI ROPER MD Elect ronically Signed By: BAKARI ROPER MD on 03/05/17 1431 Transcribed By: [facility] COUNTY HOSPITALChanelle Carias on 03/05/17 1431 COPY TO: BUDDY MAY MD
[2020-01-05 14:30] LABS: CLARITY,URINE CLEAR (CLEAR); COLOR,URINE YELLOW (YELLOW); LEUKOCYTE ESTERASE ,URINE NEGATIVE (NEGATIVE); NITRITE,URINE NEGATIVE (NEGATIVE); PROTEIN,URINE DIPSTICK NEGATIVE (NEGATIVE)
[2020-01-05 14:31] LABS: BILIRUBIN,URINE NEGATIVE (NEGATIVE); INR 0.89; KETONES,URINE NEGATIVE (NEGATIVE); PROTHROMBIN TIME 12.5 seconds (11.9-14.5); URINE UROBILINOGEN 0.2 mg/dL (0.2 - 1)
[2020-01-05 14:33] LABS: ALBUMIN 4.1 g/dL (3.5-5.0); ALBUMIN/GLOBULIN RATIO 1.2 (0.8-2.0); ANION GAP 18.3 mmol/L (8-16); CREATININE, SERUM 1.26 mg/dL (0.57-1.11); POTASSIUM 3.3 mmol/L (3.5-5.1)
[2020-01-05 14:37] LABS: PARTIAL THROMBOPLASTIN TIME 21.5 seconds (23.8-35.5)
[2020-01-05 14:40] LABS: CREATINE KINASE MB 1.9 ng/mL (0-5.0)
[2020-01-05 14:46] LABS: BACTERIA,URINE RARE /HPF; EPITHELIAL CELLS,URINE FEW /LPF; RBC,URINE 0-5 /HPF (0-5); WBC,URINE (MAN) 0-5 /HPF (0-5)
[2020-01-05] MEDS ORDERED: HYDROMORPHONE 1MG/1ML INJ IV STA (15:16)
--- NOTE | 2020-01-05 16:20 | Emergency Department Note ---
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 LEFT SHOULDER PAIN, POSS.DISLOCATION PER EMS. SLING. +RADIAL PULSE. PT AAOX4. 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 Any updates have been documented here. Past Medical History Recent Fever: No Clinical Suspicion of Infectio: No New/Unexplained Change in Ment: No Past Medical History: Hypertension, Diabetes, Anxiety, Depression, GERD, Hyperl ipedemia Other Medical History: IBS Other Surgery: ROTATOR CUFF, POLYPS INTESTINAL REMOVED, R HIP REPLACED, Social History Smoking Cessation: Never Smoker Counseling Performed: No Alcohol Use: None Any Illegal Drug Use: No TB Exposure/Symptoms: No Physically hurt or threatened: No Family History Family history of heart diseas: No Other Last Tetanus: UNK Any Pre-Existing Lines (PICC,: No Review of Systems Review of Systems Constitutional: Reports no symptoms EENTM: Reports no symptoms Cardiovascular: Reports no symptoms Respiratory: Reports no symptoms Gastrointestinal: Reports no symptoms Genitourinary: Reports no symptoms Musculoskeletal: Reports as per HPI Integumentary: Reports no symptoms Neurological: Reports no symptoms Psychological: Reports no symptoms Endocrine: Reports no symptoms Hematological/Lymphatic: Reports no symptoms Physical Exam Related Data Allergies: Coded Allergies: codeine (Verified Allergy, Mild, ITCHY, 11/18/13) Penicillins (Verified Allergy, 11/18/13) Triage Vital Signs Vital Signs Date Time Temp Pulse Resp B/P (MAP) Pulse Ox O2 Delivery O2 Flow Rate FiO2 01/05/20 13:26 98.1 85 18 157/67 98 Room Air Vital signs reviewed: Yes Physical Exam CONSTITUTIONAL Constitutional: Present well-developed, Present well-nourished HENT HENT: Present normocephalic, Present atraumatic, Present oropharynx clear/moist, Present nose normal HENT L/R: Present left ext ear normal, Present right ext ear normal EYES Eyes: Reports PERRL, Reports conjunctivae normal NECK Neck: Present ROM normal PULMONARY Pulmonary: Present effort normal, Present breath sounds normal CARDIOVASCULAR Cardiovascular: Present regular rhythm, Present heart sounds normal, Present capillary refill normal, Present normal rate GASTROINTESTINAL Abdominal: Present soft, Present nontender, Present bowel sounds normal GENITOURINARY Genitourinary: Present exam deferred SKIN Skin: Present warm, Present dry MUSCULOSKELETAL Musculoskeletal: Present other (left leg shortened and ext rotated, decr ROM left shoulder) NEUROLOGICAL Neurological: Present alert, Present oriented x 3, Present no gross motor or sensory deficits PSYCHOLOGICAL Psychological: Present mood/affect normal, Present judgement normal Results Laboratory Result Diagram: 01/05/20 1355 01/05/20 1355 Laboratory Laboratory Tests Test 01/05/20 13:55 White Blood Count 17.30 x10e3/uL (4.8-10.8) Red Blood Count 4.22 x10e6/uL (3.6-5.1) Hemoglobin 11.1 g/dL (12.0-16.0) Hematocrit 34.0 % (34.2-44.1) Mean Corpuscular Volume 80.6 fL (81-99) Mean Corpuscular Hemoglobin 26.3 pg (28-32) Mean Corpuscular Hemoglobin Concent 32.6 g/dL (31-35) Red Cell Distribution Width 15.1 % (11.7-14.4) Platelet Count 271 x10e3/uL (140-360) Neutrophils (%) (Auto) 88.6 % (38.7-80.0) Lymphocytes (%) (Auto) 7.5 % (18.0-39.1) Monocytes (%) (Auto) 2.8 % (4.4-11.3) Eosinophils (%) (Auto) 0.1 % (0.0-6.0) Basophils (%) (Auto) 0.5 % (0.0-1.0) Neutrophils # (Auto) 15.3 (2.1-6.9) Lymphocytes # (Auto) 1.3 (1.0-3.2) Monocytes # (Auto) 0.5 (0.2-0.8) Eosinophils # (Auto) 0.0 (0.0-0.4) Basophils # (Auto) 0.1 (0.0-0.1) Absolute Immature Granulocyte (auto 0.09 x10e3/uL (0-0.1) Prothrombin Time 12.5 seconds (11.9-14.5) Prothromb Time International Ratio 0.89 Activated Partial Thromboplast Time 21.5 seconds (23.8-35.5) Urine Color Yellow (YELLOW) Urine Clarity Clear (CLEAR) Urine pH 6 (5 - 7) Urine Specific [place] 1.025 (1.010-1.025) Urine Protein Negative (NEGATIVE) Urine Glucose (UA) Negative (NEGATIVE) Urine Ketones Negative (NEGATIVE) Urine Blood Negative (NEGATIVE) Urine Nitrite Negative (NEGATIVE) Urine Bilirubin Negative (NEGATIVE) Urine Urobilinogen 0.2 mg/dL (0.2 - 1) Urine Leukocyte Esterase Negative (NEGATIVE) Urine RBC 0-5 /HPF (0-5) Urine WBC 0-5 /HPF (0-5) Urine Epithelial Cells Few /LPF (NONE) Urine Bacteria Rare /HPF (NONE) Sodium Level 138 mmol/L (136-145) Potassium Level 3.3 mmol/L (3.5-5.1) Chloride Level 103 mmol/L (98-107) Carbon Dioxide Level 20 mmol/L (22-29) Anion Gap 18.3 mmol/L (8-16) Blood Urea Nitrogen 21 mg/dL (7-26) Creatinine 1.26 mg/dL (0.57-1.11) Estimat Glomerular Filtration Rate 42 ML/MIN (60-) BUN/Creatinine Ratio 17 (6-25) Glucose Level 240 mg/dL (74-118) Calcium Level 9.0 mg/dL (8.4-10.2) Total Bilirubin 0.6 mg/dL (0.2-1.2) Aspartate Amino Transf (AST/SGOT) 29 IU/L (5-34) Alanine Aminotransferase (ALT/SGPT) 27 IU/L (0-55) Alkaline Phosphatase 60 IU/L (40-150) Creatine Kinase 78 IU/L (29-168) Creatine Kinase MB 1.90 ng/mL (0-5.0) Troponin I 0.009 ng/mL (0-0.300) Total Protein 7.4 g/dL (6.5-8.1) Albumin 4.1 g/dL (3.5-5.0) Globulin 3.3 g/dL (2.3-3.5) Albumin/Globulin Ratio 1.2 (0.8-2.0) Lab results reviewed: Yes Imaging Imaging results reviewed: Yes Procedures 12 Lead ECG Interpretation ECG Interpretation : ECG: ECG 1 Coil Binder: Interpreted by ED physician Date: Jan 05, 2020 Time: 13:41 Rhythm: sinus rhythm Rate: normal (92) QRS axis: normal ST segments normal: Yes T waves normal: Yes Clinical Impression: abnormal ECG (prolonged QT) Assessment & Plan Medical Decision Making MDM fall - appears to have left fem neck fx and ? left shoulder fx - check CBC, CHEM, ECG, CARDIACS, XRAYS LEFT HIP & SHOULDER, CT BRAIN/c-SPINE - R/O FX HIP/SHOULDER, CEREBRAL BLEED, CERV FX Reassessment Reassessment ADMIT TO Simone MERAZ, ALSO SPOKE WITH DR RUDOLPH Assessment & Plan Final Impression: (1) Closed fracture of left proximal humerus (2) Hip fracture, left (3) Fall Depart Disposition: ADMITTED Last Vital Signs Date Time Temp Pulse Resp B/P (MAP) Pulse Ox O2 Delivery O2 Flow Rate FiO2 01/05/20 13:26 98.1 85 18 157/67 98 Room Air Home Meds Reported Medications Rivaroxaban (XARELTO) 10 Mg Tablet, 10 MG PO DAILY for 21 Days 06/10/19 Diphenhydramine Hcl (BENADRYL) 25 Mg Capsule, 25 MG PO UD PRN for ITCHING 06/10/19 Acetaminophen With Codeine (TYLENOL WITH CODEINE #3 TABLET) 1 Each Tablet, 300 MG PO Q4-6 PRN for Mild Pain (1-3) or Fever>100.8, TAB 06/10/19 [Triamterene] No Conflict Check, 75 06/07/19 Cinnamon Bark (CINNAMON) 500 Mg Capsule, 500 MG PO Q12H 04/05/19 Diphenhydramine Hcl (BENADRYL) 25 Mg Capsule, 25 MG PO Q6H PRN for ITCHING 04/05/19 Pantoprazole Sodium (PANTOPRAZOLE SODIUM) 20 Mg Tablet.dr, 40 MG PO DAILY@0600 04/05/19 Atorvastatin Calcium (LIPITOR) 20 Mg Tablet, 20 MG PO HS, #30 TAB 03/15/16 Escitalopram Oxalate (LEXAPRO) 10 Mg Tablet, 10 MG PO DAILY, TAB 04/18/14 Lisinopril (LISINOPRIL) 10 Mg Tablet, 10 MG PO DAILY, TAB 04/18/14 Clonazepam (CLONAZEPAM) 0.5 Mg Tablet, 0.5 MG PO HS 11/18/13 Metformin Hcl (METFORMIN HCL) 500 Mg Tablet, 500 MG PO BID 11/18/13 Medications in the ED Morphine Sulfate 4 mg NOW STAT IV Last administered on 01/05/20at 14:54; Admin Dose 4 MG; Start 01/05/20 at 13:59; Stop 01/05/20 at 14:09; Status DC Ondansetron HCl 4 mg NOW STAT IV Last administered on 01/05/20at 14:54; Admin Dose 4 MG; Start 01/05/20 at 13:59; Stop 01/05/20 at 14:09; Status DC Hydromorphone HCl 0.5 mg NOW STAT IV Last administered on 01/05/20at 15:32; Admin Dose 0.5 MG; Start 01/05/20 at 15:16; Stop 01/05/20 at 15:43; Status DC JAZZ HANNA MD Jan 05, 2020 16:20
--- NOTE | 2020-01-05 16:24 | Diagnostic Imaging Report ---
EXAMINATION: HIP LEFT 2-3 VW (+/- PELVIS) INDICATION: Trauma COMPARISON: None FINDINGS: AP views of the left hip and pelvis demonstrate acute comminuted mildly displaced intertrochanteric left proximal femur fracture. No additional acute fractures identified. Findings of remote right proximal femur ORIF hardware which was subsequently removed. Nonobstructive bowel gas pattern. Tiny phleboliths in the pelvis. Degenerative changes of the partially visualized spine and both hip joints. IMPRESSION: Acute comminuted mildly displaced intertrochanteric left proximal femur fracture. Signed by: Wisam Padron MD on 01/05/2020 4:20 PM
--- NOTE | 2020-01-05 16:25 | Diagnostic Imaging Report ---
EXAMINATION: SHOULDER LEFT COMPLETE INDICATION: Trauma COMPARISON: None FINDINGS: Acute mildly displaced greater tuberosity fracture. No additional fractures identified. Partially visualized left lung appears clear. IMPRESSION: Acute mildly displaced greater tuberosity of left proximal humerus fracture. Signed by: Wisam Padron MD on 01/05/2020 4:22 PM
--- NOTE | 2020-01-05 16:27 | Diagnostic Imaging Report ---
EXAMINATION: CHEST SINGLE (PORTABLE) INDICATION: Trauma COMPARISON: Left shoulder radiographs of the same day FINDINGS: LINES/TUBES:None LUNGS:The lungs are well-inflated. No focal consolidation or pulmonary edema. PLEURA:No pleural effusion or pneumothorax. MEDIASTINUM:The cardiomediastinal silhouette appears normal in size and shape. Atherosclerotic calcifications of the thoracic aorta. BONES/SOFT TISSUES:Acute left proximal humerus greater tuberosity fracture described in greater detail on dedicated left shoulder radiographs. No displaced rib fractures. ABDOMEN:No free air under the diaphragm. IMPRESSION: Acute left proximal humerus greater tuberosity fracture described in greater detail on dedicated left shoulder radiographs. Otherwise, no radiographic evidence of acute traumatic thoracic injury. Signed by: Wisam Padron MD on 01/05/2020 4:24 PM
[2020-01-05] MEDS ORDERED: SODIUM CHLORIDE 0.9% 1000ML 1,000 ML IV SCH (16:30)
[2020-01-05] MEDS ORDERED: ONDANSETRON HCL INJ 2MG/ML 2ML 2 MG/ML VIAL IV PRN (16:30)
--- NOTE | 2020-01-05 16:36 | Diagnostic Imaging Report ---
EXAMINATION: Head and cervical spine CT without contrast. HISTORY: Status post fall, trauma, pain, possible left shoulder dislocation COMPARISON: None. TECHNIQUE: Multidetector axial images were obtained without contrast from the foramen magnum to the vertex and through the cervical spine. The images were reconstructed using brain and bone algorithms. Thin section brain images were reformatted into coronal and sagittal planes. Dose modulation, iterative reconstruction, and/or weight based adjustment of the mA/kV was utilized to reduce the radiation dose to as low as reasonably achievable. HEAD CT FINDINGS: Skull/scalp: No lytic or blastic lesions. No fractures. Parenchyma: Few scattered comma mostly juxtacortical white matter hypodensities, most likely nonspecific chronic microvascular ischemic changes. 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 No mass, hemorrhage or CT evidence of acute vascular insult. Brain volume: Normal for age. Ventricles: No hydrocephalus or displacement. Arteries: No density suggestive of thrombus. Dural sinuses: No abnormal density. Extra-axial spaces: No abnormal density. Foramen magnum: No mass, Chiari malformation, or basilar invagination. Sella: No obvious mass. Paranasal/mastoid sinuses: Imaged portions unremarkable. CERVICAL SPINE CT FINDINGS: Alignment:Straightening of the cervical lordosis which may be related to muscle spasm or positional.. Soft tissues: Normal. Vertebrae: Normal height and density. No acute fracture, infection or neoplasm. Degenerative changes: C1-C2: Mild degenerative changes without stenosis. C2-C3: Normal C3-C4: Facet arthrosis worst on the left. No stenoses. C4-C5: Facet arthrosis worst on the right. Mild right foraminal stenosis. C5-C6: Disc osteophyte complex formation, bilateral uncovertebral and facet arthrosis. Moderate right and severe left foraminal stenoses. Mild canal stenoses. C6-C7: Disc osteophyte complex formation, mild uncovertebral arthrosis worst on the left. Moderate right and moderately severe left foraminal stenoses. C7-T1: Normal IMPRESSION: Head CT: 1. No acute postraumatic intracranial hemorrhage. 2. Mild chronic microvascular ischemic changes. Cervical spine CT: 1. No acute fractures or dislocations. 2. Chronic degenerative changes as described. Note: Acute post traumatic spinal cord, vascular or ligamentous injury cannot adequately be assessed with CT. Signed by: Dr. Susy Coronel M.D. on 01/05/2020 4:32 PM
--- OUTSIDE RECORDS SUMMARY | 2020-01-05 16:42 | XMS REPORT | Continuity of Care Document ---
Author Author [facility] t Organization [facility] Address [address] [place] [address] Phone Unavailable Care Team Providers Care Hyperbaric Technologist Name Role Phone NORAH BOSWELL DO PCP Cira HANNA Attphys Unavailable LUPILLO RUDOLPH Attphys Unavailable BUDDY MAY Attphys Unavailable MERAZMAMI TAYLOR Admphys Unavailable LUPILLO RUDOLPH Admphys Unavailable Payers Payer Name Policy Type Policy Number Effective Date Expiration Date S cathy Miscellaneous Ppo [id number] 2019 00:00:00 [facility] Medicare A & B [id number] 2013 00:00:00 [facility] Miscellaneous Indemnity [id number] 2019 00:00:00 [facility] Problems Condition Name Condition Details Condition Category Status Onset Date Resolution Date Last Treatment Date Treating Clinician Comments Source Diabetes mellitus Diabetes Problem Active [facility] Fall Fall Problem Active [facility] Closed intertrochanteric fracture of femur Intertrochanteric fx- closed Problem Active [facility] Allergies, Adverse Reactions, Alerts Allergy Name Allergy Type Status Severity Reaction(s) Onset Date Inacti ve Date Treating Clinician Comments Source codeine DA Active U 2014-01-03 00:00:00 [facility] penicillin G DA Active U 2014-01-03 00:00:00 [facility] Penicillin Allergy to Substance Active 2013-11-18 00:00:00 [facility] Codeine Allergy to Substance Active Mild ITCHY 2013-11-18 00:00:00 [facility] Medications Ordered Medication Name Filled Medication Name Start Date Stop Da te Current Medication? Ordering Clinician Indication Dosage Frequency Signature (SIG) Comments Components Source Acetaminophen With Codeine (Tylenol With Codeine #3 Ta blet) 1 Each Tablet Acetaminophen With Codeine (Tylenol With Codeine #3 Tablet) 1 Each Tablet Yes 300 Q4-6 as needed for Mild Pain (1-3) Or Fe edwina>100.8 [facility] Atorvastatin Calcium (Lipitor) 20 Mg Tablet Atorvastat in Calcium (Lipitor) 20 Mg Tablet Yes 20 Bedtime [facility] Cinnamon Bark (Cinnamon) 500 Mg Capsule Cinnamon Bark (Cinna mon) 500 Mg Capsule Yes 500 Every 12 Hours CH I [facility] Clonazepam 0.5 Mg Tablet Clonazepam 0.5 Mg Tablet Yes .5 Bedtime [facility] Diphenhydramine Hcl (Benadryl) 25 Mg Capsule Diphenhyd ramine Hcl (Benadryl) 25 Mg Capsule Yes 25 Every 6 Hours as needed for Itching [facility] Diphenhydramine Hcl (Benadryl) 25 Mg Capsule Diphenhyd ramine Hcl (Benadryl) 25 Mg Capsule Yes 25 Use As Directed as needed f or Itching [facility] Escitalopram Oxalate (Lexapro) 10 Mg Tablet Escitalopr am Oxalate (Lexapro) 10 Mg Tablet Yes 10 Daily [facility] Lisinopril 10 Mg Tablet Lisinopril 10 Mg Tablet Yes 10 Daily [facility] Metformin Hcl 500 Mg Tablet Metformin Hcl 500 Mg Tablet Yes 500 Twice A Day [facility] Pantoprazole Sodium 20 Mg Tablet. Pantoprazole Sodium 20 Mg Tablet. Yes 40 Daily@0600 [facility] Rivaroxaban (Xarelto) 10 Mg Tablet Rivaroxaban (Xarelto) 10 Mg Tablet Yes 10 Daily [facility] Triamterene Triamterene Yes 75 C [facility] Turmeric 1 Gm Powder, 750 Mg Oral Turmeric 1 Gm Powder, 750 Mg O ral 2019-06-07 00:00:00 No 750 Daily [facility] Cyclobenzaprine Hcl (Flexeril) 5 Mg Tablet, 5 Mg Oral Cyclobenzaprine Hcl (Flexeril) 5 Mg Tablet, 5 Mg Oral 2019-04-05 00:00:00 No 5 Daily [facility] Invokana , 100 Mg Oral Invokana , 100 Mg Oral 2019-04-05 00:00:0 0 No 100 Daily [facility] Omeprazole 20 Mg Tablet., 20 Mg Oral Omeprazole 20 Mg Tablet.vazquez savage, 20 Mg Oral 2019-04-05 00:00:00 No 20 Daily [facility] Tylenol , 500 Mg Oral Tylenol , 500 Mg Oral 2019-04-05 00:00:00 No 500 As Needed [facility] Rosuvastatin Calcium (Crestor) 5 Mg Tablet, 5 Mg Oral Rosuvastatin Calcium (Crestor) 5 Mg Tablet, 5 Mg Oral 2016-03-15 00:00:00 No 5 Daily [facility] Aspirin (Aspir-Low) 81 Mg Tablet., 81 Mg Oral Aspiri n (Aspir-Low) 81 Mg Tablet., 81 Mg Oral 2014-04-18 00:00:00 No 81 Da marquise [facility] Lisinopril 2.5 Mg Tablet, 2.5 Mg Oral Lisinopril 2.5 Mg Tablet, 2.5 Mg Oral 2014-04-18 00:00:00 No 2.5 Daily [facility] Naproxen Sodium (Aleve) 220 Mg Capsule, Naproxen Sodium (Leana ve) 220 Mg Capsule, 2014-04-18 00:00:00 No Twice A Day [facility] Procedures Procedure Date / Time Performed Performing Clinician Sour e REMOVAL OF SUPPORT IMPLANT 2019-06-09 00:00:00 LUPILLO RUDOLPH [facility] X-ray of chest, two views 2019-04-05 00:00:00 LUPILLO RUDOLPH CH I [facility] Encounters Start Date/Time End Date/Time Encounter Type Admission Type Attendi [facility] Care Department Encounter ID Source 2019-08-02 14:32:00 2019-08-31 23:59:[address] [facility] [id number] [facility] 2019-07-22 13:12:00 2019-07-31 23:59:[address] [facility] [id number] [facility] 2019-06-09 09:16:00 2019-06-10 15:06:00 Discharged Inpatient (obs) [address] [facility] [id number] [facility] 2019-04-05 05:00:00 2019-04-05 05:00:00 Registered Clinic [address] [facility] [id number] [facility] Results Test Description Test Time Test Comments Results Result Comments Source CHEST SINGLE (PORTABLE) 2020-01-05 16:22:00 [facility] [address] [place] [address] Patient Name: PARTH KHANNA MR #: [id number] : 1950 Age/Sex: 69/F Req #: [id number] Adm Physician: Ordered by: JAZZ HANNA MD Report #: [id number] Location: ER Room/Bed: Procedure: [id number] DX/CHEST SINGLE (PORTABLE) Exam Date: 01/05/20 Exam Time: 2019 REPORT STATUS: Signed EXAMINATION: CHEST SINGLE (PORTABLE) INDICATION: Trauma COMPARISON: Left shoulder radiographs of the same day FINDINGS: LINES/TUBES:None LUNGS:The lungs are well-inflated. No focal consolidation or pulmonary edema. PLEURA:No pleural effusion or pneumothorax. MEDIASTINUM:The cardiomediastinal silhouette appears normal in size and shape. Atherosclerotic calcifications of the thoracic aorta. BONES/SOFT TISSUES:Acute left proximal humerus greater tuberosity fracture described in greater detail on dedicated left shoulder radiographs. No displaced rib fractures. ABDOMEN:No free air under the diaphragm. IMPRESSION: Acute left proximal humerus greater tuberosity fracture described in greater detail on dedicated left shoulder radiographs. Otherwise, no radiographic evidence of acute traumatic thoracic injury. Signed by: Perez Salgado MD on 01/05/2020 4:24 PM Dictated By: PEREZ SALGADO MD 23 Transcribed By: JAYSON on 01/05/201623 COPY TO: JAZZ HANNA MD SHOULDER LEFT COMPLETE 2020-01-05 16:20:00 [place] [address] Patient Name: PARTH KHANNA MR #: [id number] : 1950 Age/Sex: 69/F Req #: [id number] Adm Physician: Ordered by: JAZZ HANNA MD Report #: [id number] Location: ER Room/Bed: Procedure: [id number] DX/SHOULDER LEFT COMPLETE Exam Date: 01/05/20 Exam Time: 1539 REPORT STATUS: Signed EXAMINATION: SHOULDER LEFT COMPLETE INDICATION: Trauma COMPARISON: None FINDINGS: Acute mildly displaced greater tuberosity fracture. No additional fractures identified. Partially visualized left lung appears clear. IMPRESSION: Acute mildly displaced greater tuberosity of left proximal humerus fracture. Signed by: Perez Salgado MD on 01/05/2020 4:22 PM Dictated By: PEREZ SALGADO MD 21 Transcribed By: JAYSON on 01/05/201621 COPY TO: JAZZ HANNA MD CT CERVICAL SPINE WO 2020-01-05 16:19:00 [facility] [address] [place] [address] Patient Name: PARTH KHANNA MR #: [id number] : 1950 Age/Sex: 69/F Req #: [id number] Adm Physician: Ordered by: JAZZ HANNA MD Report #: [id number] Location: ER Room/Bed: Procedure: [id number] CT/CT CERVICAL SPINE WO Exam Date: 01/05/20 Exam Time: 1520 REPORT STATUS: Signed EXAMINATION: Head and cervical spine CT without contrast. HISTORY: Status post fall, trauma, pain, possible left shoulder dislocation COMPARISON: None. TECHNIQUE: Multidetector axial images were obtained without contrast from the foramen magnum to the vertex and through the cervical spine. The images were reconstructed using brain and bone algorithms. Thin section brain images were reformatted into coronal and sagittal planes. Dose modulation, iterative reconstruction, and/or weight based adjustment of the mA/kV was utilized to reduce the radiation dose to as low as reasonably achievable. HEAD CT FINDINGS: Skull/scalp: No lytic or blastic lesions. No fractures. Parenchyma: Few scattered comma mostly juxtacortical white matter hypodensities, most likely nonspecific chronic microvascular ischemic changes. 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 No mass, hemorrhage or CT evidence of acute vascular insult. Brain volume: Normal for age. Ventricles: No hydrocephalus or displacement. Arteries: No density suggestive of thrombus. Dural sinuses: No abnormal density. Extra-axial spaces: No abnormal density. Foramen magnum: No mass, Chiari malformation, or basilar invagination. Sella: No obvious mass. Paranasal/mastoid sinuses: Imaged portions unremarkable. CERVICAL SPINE CT FINDINGS: Alignment:Straightening of the cervical lordosis which may be related to muscle spasm or positional.. Soft tissues: Normal. Vertebrae: Normal height and density. No acute fracture, infection or neoplasm. Degenerative changes: C1-C2: Mild degenerative changes without stenosis. C2-C3: Normal C3-C4: Facet arthrosis worst on the left. No stenoses. C4-C5: Facet arthrosis worst on the right. Mild right foraminal stenosis. C5-C6: Disc osteophyte complex formation, bilateral uncovertebral and facet arthrosis. Moderate right and severe left foraminal stenoses. Mild canal stenoses. C6-C7: Disc osteophyte complex formation, mild uncovertebral arthrosis worst on the left. Moderate right and moderately severe left foraminal stenoses. C7-T1: Normal IMPRESSION: Head CT: 1. No acute postraumatic intracranial hemorrhage. 2. Mild chronic microvascular ischemic changes. Cervical spine CT: 1. No acute fractures or dislocations. 2. Chronic degenerative changes as described. Note: Acute post traumatic spinal cord, vascular or ligamentous injury cannot adequately be assessed with CT. Signed by: Dr. Juana Coronel M.D. on 01/05/2020 4:32 PM Dictated By: JUANA CORONEL MD 163 Transcribed By: JAYSON on 01/05/20 1632 COPY TO: JAZZ HANNA MD CT BRAIN WO 2020-01-05 16:19:00 [place] [address] Patient Name: PARTH KHANNA MR #: [id number] : 1950 Age/Sex: 69/F Req #: [id number] Adm Physician: Ordered by: JAZZ HANNA MD Report #: [id number] Location: Room/Bed: Procedure: [id number] CT/CT BRAIN WO Exam Date: 01/05/20 Exam Time: 1520 REPORT STATUS: Signed EXAMINATION: Head and cervical spine CT without contrast. HISTORY: Status post fall, trauma, pain, possible left shoulder dislocation COMPARISON: None. TECHNIQUE: Multidetector axial images were obtained without contrast from the foramen magnum to the vertex and through the cervical spine. The images were reconstructed using brain and bone algorithms. Thin section brain images were reformatted into coronal and sagittal planes. Dose modulation, iterative reconstruction, and/or weight based adjustment of the mA/kV was utilized to reduce the radiation dose to as low as reasonably achievable. HEAD CT FINDINGS: Skull/scalp: No lytic or blastic lesions. No fractures. Parenchyma: Few scattered comma mostly juxtacortical white matter hypodensities, most likely nonspecific chronic microvascular ischemic changes. 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 No mass, hemorrhage or CT evidence of acute vascular insult. Brain volume: Normal for age. Ventricles: No hydrocephalus or displacement. Arteries: No density suggestive of thrombus. Dural sinuses: No abnormal density. Extra-axial spaces: No abnormal density. Foramen m agnum: No mass, Chiari malformation, or basilar invagination. Sella: No obvious mass. Paranasal/mastoid sinuses: Imaged portions unremarkable. CERVICAL SPINE CT FINDINGS: Alignment:Straightening of the cervical lordosis which may be related to muscle spasm or positional.. Soft tissues: Normal. Vertebrae: Normal height and density. No acute fracture, infection or neoplasm. Degenerative changes: C1-C2: Mild degenerative changes without stenosis. C2-C3: Normal C3-C4: Facet arthrosis worst on the left. No stenoses. C4-C5: Facet arthrosis worst on the right. Mild right foraminal stenosis. C5-C6: Disc osteophyte complex formation, bilateral uncovertebral and facet arthrosis. Moderate right and severe left foraminal stenoses. Mild canal stenoses. C6-C7: Disc osteophyte complex formation, mild uncovertebral arthrosis worst on the left. Moderate right and moderately severe left foraminal stenoses. C7-T1: Normal IMPRESSION: Head CT: 1. No acute postraumatic intracranial hemorrhage. 2. Mild chronic microvascular ischemic changes. Cervical spine CT: 1. No acute fractures or dislocations. 2. Chronic degenerative changes as described. Note: Acute post traumatic spinal cord, vascular or ligamentous injury cannot adequately be assessed with CT. Signed by: Dr. Juana Coronel M.D. on 01/05/2020 4:32 PM Dictated By: JUANA CORONEL MD 31 Transcribed By: JAYSON on 01/05/201631 COPY TO: JAZZ HANNA MD HIP LEFT 2-3 VW (+/- PELVIS) 2020-01-05 16:18:00 [place] [address] Patient Name: PARTH KHANNA MR #: [id number] : 1950 Age/Sex: 69/F Req #: [id number] Adm Physician: Ordered by: JAZZ HANNA MD Report #: [id number] Location: ER Room/Bed: Procedure: [id number] DX/HIP LEFT 2-3 VW (+/- PELVIS) Exam Date: Exam Time: REPORT STATUS: Signed EXAMINATION: HIP LEFT 2-3 VW (+/- PELVIS) INDICATION: Trauma COMPARISON: None FINDINGS: AP views of the left hip and pelvis demonstrate acute comminuted mildly displaced intertrochanteric left proximal femur fracture. No additional acute fractures identified. Findings of remote right proximal femur ORIF hardware which was subsequently removed. Nonobstructive bowel gas pattern. Tiny phleboliths in the pelvis. Degenerative changes of the partially visualized spine and both hip joints. IMPRESSION: Acute comminuted mildly displaced intertrochanteric left proximal femur fracture. Signed by: Perez Salgado MD on 01/05/2020 4:20 PM Dictated By: PEREZ SALGADO MD 19 Transcribed By: JAYSON on 01/05/201619 COPY TO: JAZZ HANNA MD SCR MAMM BILATERAL SHAMIKA CAD DIGITAL 2019-12-29 08:42:58 - SCR MAMM BILATERAL SHAMIKA CAD DIGITALBILATERAL DIGITAL SCREENING MAMMOGRAM 3D/2D WITH CAD: 12/28/2019CLINICAL: Asymptomatic. Digital breast tomosynthesis was performed in addition to routine CC and MLO views. Current mammographic images were evaluated by either a [employer] M-Vu or a [employer] ImageChecker CAD (computer aided detection system). Comparison is made to exams dated 10/02/2018 mammogram, 2017 mammogram, and 08/07/2016 mammogram - [facility]-. There are scattered fibroglandular tissues in both breasts. No suspicious mass, architectural distortion, malignant type calcification, or lymph node abnormality detected. Breast architecture is stable compared to prior exams.IMPRESSION: NEGATIVEThere is no mammographic evidence of malignancy. Resume annual screening mammography in one year. Bolivar Jackson M.D. ss/penrad:12/29/2019 08:42:58 Word Processing Operator: Isabella PINTO, [facility]-FWletter sent: BIRADS 1-2 Normal Mammogram BI-RADS: 1 Nega tive Bedside Glucose 2019-06-10 17:28:00 Test Item Bedside Glucose (test code = 27676-0) 127 70-120 H Meter ID: [id number] [facility] Glucose 2019-06-10 17:28:00* Test Item Value Reference Range Interpretation Comments Bedside Glucose (test code = 31828-6) 127 70-120 H Meter ID: [id number] [facility] Glucose 2019-06-10 07:51:00* Test Item Value Reference Range Interpretation Comments Bedside Glucose (test code = 22010-9) 121 70-120 H Meter ID: [id number] [facility] 06:10:00* Test Item Value Reference Range Interpretation Comments Hemoglobin (test code = 06291-7) 8.6 12.0-16.0 L [facility]ematocrit2020-01-09 06:10:00* Test Item Value Reference Range Interpretation Comments Hematocrit (test code = 4544-3) 27.4 34.2-44.1 L [facility]oglobin2020-01-09 06:10:00* Test Item Value Reference Range Interpretation Comments Hemoglobin (test code = 93229-2) 8.6 12.0-16.0 L [facility]Hematocrit2020-01-09 06:10:00* Test Item Value Reference Range Interpretation Comments Hematocrit (test code = 4544-3) 27.4 34.2-44.1 L [facility]oglobin2020-01-09 06:10:00* Test Item Value Reference Range Interpretation Comments Hemoglobin (test code = 31023-0) 8.6 12.0-16.0 L [facility]Hematocrit2020-01-09 06:10:00* Test Item Value Reference Range Interpretation Comments Hematocrit (test code = 4544-3) 27.4 34.2-44.1 L [facility] HospitalH[facility] RIGHT 2-3 VW (+/- PELVIS)2019-06-09 12:28:00 [place] [address] Patient Name: PARTH KHANNA V MR #: [id number] : 1950 Age/Sex: 68/F Req #: [id number] Adm Physician: LUPILLO RUDOLPH MD Ordered by: LUPILLO RUDOLPH MD Report #: [id number] Location: PACU Room/Bed: PACU-1 Procedure: [id number] DX/HIP RIGHT 2-3 VW (+/- PELVIS) Exam Date: Exa m Time: REPORT STATUS: Signed R ight hip, 2 views Clinical indication: Postop evaluation Comparison: N o comparisons available for review Impression: Patient is status post rem oval of a right gamma nail. No acute fracture is identified. Signed by: Simone Joel MD on 06/09/2019 12:29 PM Dictated By: SANNA JOEL MD 28 Transcribed By: JAYSON on 06/09/19 1229 COPY TO: LUPILLO RUDOLPH MD Sodium Level 2019-06-07 16:56:00* Test Item Value Reference Range Interpretation Comments Sodium Level (test code = 2951-2) 136 136-145 [facility]Potassium Ajcfq1026-56-22 16:56:00* Test Item Value Reference Range Interpretation Comments Potassium Level (test code = 2823-3) 4.2 3.5-5.1 [facility] HospitalChloride Ldroo9957-69-81 16:56:00* Test Item Value Reference Range Interpretation Comments Chloride Level (test code = 2075-0) 99 98-107 [facility] HospitalCarbon Dioxide Ykoru0527-78-13 16:56:00* Test Item Value Reference Range Interpretation Comments Carbon Dioxide Level (test code = 2028-9) 25 22-29 [facility] HospitalAnion Whs6247-78-74 16:56:00* Test Item Value Reference Range Interpretation Comments Anion Gap (test code = 03178-6) 16.2 8-16 H [facility] HospitalBlood Urea Zydiussi6622-04-27 16:56:00* Test Item Value Reference Range Interpretation Comments Blood Urea Nitrogen (test code = 3094-0) 38 7-26 H [facility] HospitalCreatinine2020-01-06 16:56:00* Test Item Value Reference Range Interpretation Comments Creatinine (test code = 2160-0) 1.50 0.57-1.11 H [facility] HospitalBUN/Creatinine Rwnpw7959-87-62 16:56:00* Test Item Value Reference Range Interpretation Comments BUN/Creatinine Ratio (test code = 3097-3) 25 6-25 [facility] HospitalEstimat Glomerular Filtration Rate 2019-06-07 16:56:00* Test Item Value Reference Range Interpretation Comments Estimat Glomerular Filtration Rate (test code = 613460251) 34 >60 L Ranges were taken from the National Kidney Disease Education Program and the [facility] Kidney Foundation literature.Reference ranges:60 or greater: Omqgwe65-58 ( for 3 consecutive months): Chronic kidney disease 15 or less: Kidney failureHouston Methodist Baytown HospitalGlucose Ksbqg0200-52-23 16:56:00* Test Item Value Reference Range Interpretation Comments Glucose Level (test code = HML7303) 179 74-118 H [facility] HospitalCalcium Wczmh8947-25-96 16:56:00* Test Item Value Reference Range Interpretation Comments Calcium Level (test code = 74019-6) 9.6 8.4-10.2 [facility] Pytyb4501-78-07 16:56:00* Test Item Value Reference Range Interpretation Comments Sodium Level (test code = 2951-2) 136 136-145 [facility] HospitalPotassium Pwpzr6051-62-44 16:56:00* Test Item Value Reference Range Interpretation Comments Potassium Level (test code = 2823-3) 4.2 3.5-5.1 [facility] HospitalChloride Kgvfv9049-26-71 16:56:00* Test Item Value Reference Range Interpretation Comments Chloride Level (test code = 2075-0) 99 98-107 [facility] HospitalCarbon Dioxide Dsttc8154-09-58 16:56:00* Test Item Value Reference Range Interpretation Comments Carbon Dioxide Level (test code = 2028-9) 25 22-29 [facility] HospitalAnion Alh4493-23-69 16:56:00* Test Item Value Reference Range Interpretation Comments Anion Gap (test code = 04875-8) 16.2 8-16 H [facility] HospitalBlood Urea Irpbczox7714-75-49 16:56:00* Test Item Value Reference Range Interpretation Comments Blood Urea Nitrogen (test code = 3094-0) 38 7-26 H [facility] HospitalCreatinine2020-01-06 16:56:00* Test Item Value Reference Range Interpretation Comments Creatinine (test code = 2160-0) 1.50 0.57-1.11 H [facility] HospitalBUN/Creatinine Jddoe3145-52-62 16:56:00* Test Item Value Reference Range Interpretation Comments BUN/Creatinine Ratio (test code = 3097-3) 25 6-25 [facility] HospitalEstimat Glomerular Filtration Rate 2019-06-07 16:56:00* Test Item Value Reference Range Interpretation Comments Estimat Glomerular Filtration Rate (test code = 485028553) 34 >60 L Ranges were taken from the National Kidney Disease Education Program and the [facility] literature.Reference ranges:60 or greater: Vnyfju04-76 ( for 3 consecutive months): Chronic kidney disease 15 or less: Kidney failureHouston Methodist Baytown HospitalGlucose Uizml1793-73-06 16:56:00* Test Item Value Reference Range Interpretation Comments Glucose Level (test code = HOB5437) 179 74-118 H [facility] HospitalCalcium Letaa1243-41-12 16:56:00* Test Item Value Reference Range Interpretation Comments Calcium Level (test code = 74060-9) 9.6 8.4-10.2 [facility] Euigt6109-47-68 16:56:00* Test Item Value Reference Range Interpretation Comments Sodium Level (test code = 2951-2) 136 136-145 [facility] HospitalPotassium Hfkxp3117-00-73 16:56:00* Test Item Value Reference Range Interpretation Comments Potassium Level (test code = 2823-3) 4.2 3.5-5.1 [facility] HospitalChloride Vuajo3410-25-86 16:56:00* Test Item Value Reference Range Interpretation Comments Chloride Level (test code = 2075-0) 99 98-107 [facility] HospitalCarbon Dioxide Ayhkd0512-15-90 16:56:00* Test Item Value Reference Range Interpretation Comments Carbon Dioxide Level (test code = 2028-9) 25 22-29 [facility] HospitalAnion Cip4686-51-15 16:56:00* Test Item Value Reference Range Interpretation Comments Anion Gap (test code = 30586-4) 16.2 8-16 H [facility] HospitalBlood Urea Yyopgbss9343-72-63 16:56:00* Test Item Value Reference Range Interpretation Comments Blood Urea Nitrogen (test code = 3094-0) 38 7-26 H [facility] HospitalCreatinine2020-01-06 16:56:00* Test Item Value Reference Range Interpretation Comments Creatinine (test code = 2160-0) 1.50 0.57-1.11 H [facility] HospitalBUN/Creatinine Vaifk1566-06-64 16:56:00* Test Item Value Reference Range Interpretation Comments BUN/Creatinine Ratio (test code = 3097-3) 25 6-25 [facility] HospitalEstimat Glomerular Filtration Rate 2019-06-07 16:56:00* Test Item Value Reference Range Interpretation Comments Estimat Glomerular Filtration Rate (test code = 933287586) 34 >60 L Ranges were taken from the National Kidney Disease Education Program and the [facility] literature.Reference ranges:60 or greater: Nluujr88-56 ( for 3 consecutive months): Chronic kidney disease 15 or less: Kidney failureHouston [facility] Baytown HospitalGlucose Xqcye8414-72-65 16:56:00* Test Item Value Reference Range Interpretation Comments Glucose Level (test code = RYG2710) 179 74-118 H [facility] HospitalCalcium Ryztz9071-20-28 16:56:00* Test Item Value Reference Range Interpretation Comments Calcium Level (test code = 28141-5) 9.6 8.4-10.2 [facility] HospitalWhite Blood Cdotm4929-82-39 16:55:00* Test Item Value Reference Range Interpretation Comments White Blood Count (test code = 6690-2) 5.73 4.8-10.8 [facility] HospitalRed Blood Ssovf2876-13-45 16:55:00* Test Item Value Reference Range Interpretation Comments Red Blood Count (test code = 789-8) 4.57 3.6-5.1 [facility] HospitalMean Corpuscular Npnbla6340-96-18 16:55:00* Test Item Value Reference Range Interpretation Comments Mean Corpuscular Volume (test code = 787-2) 83.6 81-99 [facility] HospitalMean Corpuscular Jeogsbqqhd4771-45-83 16:55:00* Test Item Value Reference Range Interpretation Comments Mean Corpuscular Hemoglobin (test code = 785-6) 26.7 28-32 L [facility] HospitalMean Corpuscular Hemoglobin Concent 2019-06-07 16:55:00* Test Item Value Reference Range Interpretation Comments Mean Corpuscular Hemoglobin Concent (test code = 786-4) 31.9 31-35 [facility] HospitalRed Cell Distribution Nmvoy4779-90-25 16:55:00* Test Item Value Reference Range Interpretation Comments Red Cell Distribution Width (test code = 20246-3) 15.8 11.7 -14.4 H [facility] HospitalPlatelet Uorcn5349-92-09 16:55:00* Test Item Value Reference Range Interpretation Comments Platelet Count (test code = 777-3) 247 140-360 [facility] HospitalNeutrophils (%) (Auto)2019-06-07 16:55:00 * Test Item Value Reference Range Interpretation Comments Neutrophils (%) (Auto) (test code = 70664-0) 57.8 38.7-80.0 [facility] HospitalLymphocytes (%) (Auto)2019-06-07 16:55:00 * Test Item Value Reference Range Interpretation Comments Lymphocytes (%) (Auto) (test code = 736-9) 34.7 18.0-39.1 [facility] HospitalMonocytes (%) (Auto)2019-06-07 16:55:00* Test Item Value Reference Range Interpretation Comments Monocytes (%) (Auto) (test code = 5905-5) 5.8 4.4-11.3 [facility] HospitalEosinophils (%) (Auto)2019-06-07 16:55:00 * Test Item Value Reference Range Interpretation Comments Eosinophils (%) (Auto) (test code = 713-8) 0.9 0.0-6.0 [facility] HospitalBasophils (%) (Auto)2019-06-07 16:55:00* Test Item Value Reference Range Interpretation Comments Basophils (%) (Auto) (test code = 706-2) 0.5 0.0-1.0 [facility] HospitalIM GRANULOCYTES %2019-06-07 16:55:00* Test Item Value Reference Range Interpretation Comments IM GRANULOCYTES % (test code = IM GRANULOCYTES %) 0.3 0.0- 1.0 [facility] HospitalNeutrophils # (Auto)2019-06-07 16:55:00* Test Item Value Reference Range Interpretation Comments Neutrophils # (Auto) (test code = 751-8) 3.3 2.1-6.9 [facility] HospitalLymphocytes # (Auto)2019-06-07 16:55:00* Test Item Value Reference Range Interpretation Comments Lymphocytes # (Auto) (test code = 27391-9) 2.0 1.0-3.2 [facility] HospitalMonocytes # (Auto)2019-06-07 16:55:00* Test Item Value Reference Range Interpretation Comments Monocytes # (Auto) (test code = 742-7) 0.3 0.2-0.8 [facility] HospitalEosinophils # (Auto)2019-06-07 16:55:00* Test Item Value Reference Range Interpretation Comments Eosinophils # (Auto) (test code = 711-2) 0.1 0.0-0.4 [facility] HospitalBasophils # (Auto)2019-06-07 16:55:00* Test Item Value Reference Range Interpretation Comments Basophils # (Auto) (test code = 704-7) 0.0 0.0-0.1 [facility] HospitalAbsolute Immature Granulocyte (auto 2019-06-07 16:55:00* Test Item Value Reference Range Interpretation Comments Absolute Immature Granulocyte (auto (jp t code = Absolute Immature Granulocyte (auto) 0.02 0-0.1 [facility] HospitalWhite Blood Yxurd3951-60-90 16:55:00* Test Item Value Reference Range Interpretation Comments White Blood Count (test code = 6690-2) 5.73 4.8-10.8 [facility] HospitalRed Blood Suotr7870-96-36 16:55:00* Test Item Value Reference Range Interpretation Comments Red Blood Count (test code = 789-8) 4.57 3.6-5.1 [facility] HospitalMean Corpuscular Viyxem1653-04-69 16:55:00* Test Item Value Reference Range Interpretation Comments Mean Corpuscular Volume (test code = 787-2) 83.6 81-99 [facility] HospitalMean Corpuscular Ivujecccap4803-43-64 16:55:00* Test Item Value Reference Range Interpretation Comments Mean Corpuscular Hemoglobin (test code = 785-6) 26.7 28-32 L [facility] HospitalMean Corpuscular Hemoglobin Concent 2019-06-07 16:55:00* Test Item Value Reference Range Interpretation Comments Mean Corpuscular Hemoglobin Concent (test code = 786-4) 31.9 31-35 [facility] HospitalRed Cell Distribution Evwzn3006-89-10 16:55:00* Test Item Value Reference Range Interpretation Comments Red Cell Distribution Width (test code = 86716-3) 15.8 11.7 -14.4 H [facility] HospitalPlatelet Dvzdj6961-69-04 16:55:00* Test Item Value Reference Range Interpretation Comments Platelet Count (test code = 777-3) 247 140-360 [facility] HospitalNeutrophils (%) (Auto)2019-06-07 16:55:00 * Test Item Value Reference Range Interpretation Comments Neutrophils (%) (Auto) (test code = 69058-3) 57.8 38.7-80.0 [facility] HospitalLymphocytes (%) (Auto)2019-06-07 16:55:00 * Test Item Value Reference Range Interpretation Comments Lymphocytes (%) (Auto) (test code = 736-9) 34.7 18.0-39.1 [facility] HospitalMonocytes (%) (Auto)2019-06-07 16:55:00* Test Item Value Reference Range Interpretation Comments Monocytes (%) (Auto) (test code = 5905-5) 5.8 4.4-11.3 [facility] HospitalEosinophils (%) (Auto)2019-06-07 16:55:00 * Test Item Value Reference Range Interpretation Comments Eosinophils (%) (Auto) (test code = 713-8) 0.9 0.0-6.0 [facility] HospitalBasophils (%) (Auto)2019-06-07 16:55:00* Test Item Value Reference Range Interpretation Comments Basophils (%) (Auto) (test code = 706-2) 0.5 0.0-1.0 [facility] HospitalIM GRANULOCYTES %2019-06-07 16:55:00* Test Item Value Reference Range Interpretation Comments IM GRANULOCYTES % (test code = IM GRANULOCYTES %) 0.3 0.0- 1.0 [facility] HospitalNeutrophils # (Auto)2019-06-07 16:55:00* Test Item Value Reference Range Interpretation Comments Neutrophils # (Auto) (test code = 751-8) 3.3 2.1-6.9 [facility] HospitalLymphocytes # (Auto)2019-06-07 16:55:00* Test Item Value Reference Range Interpretation Comments Lymphocytes # (Auto) (test code = 21264-3) 2.0 1.0-3.2 [facility] HospitalMonocytes # (Auto)2019-06-07 16:55:00* Test Item Value Reference Range Interpretation Comments Monocytes # (Auto) (test code = 742-7) 0.3 0.2-0.8 [facility] HospitalEosinophils # (Auto)2019-06-07 16:55:00* Test Item Value Reference Range Interpretation Comments Eosinophils # (Auto) (test code = 711-2) 0.1 0.0-0.4 [facility] HospitalBasophils # (Auto)2019-06-07 16:55:00* Test Item Value Reference Range Interpretation Comments Basophils # (Auto) (test code = 704-7) 0.0 0.0-0.1 [facility] HospitalAbsolute Immature Granulocyte (auto 2019-06-07 16:55:00* Test Item Value Reference Range Interpretation Comments Absolute Immature Granulocyte (auto (jp t code = Absolute Immature Granulocyte (auto) 0.02 0-0.1 [facility] HospitalWhite Blood Vkhwp5570-94-48 16:55:00* Test Item Value Reference Range Interpretation Comments White Blood Count (test code = 6690-2) 5.73 4.8-10.8 [facility] HospitalRed Blood Oxxkt0022-90-10 16:55:00* Test Item Value Reference Range Interpretation Comments Red Blood Count (test code = 789-8) 4.57 3.6-5.1 [facility] HospitalMean Corpuscular Wstbus5501-77-11 16:55:00* Test Item Value Reference Range Interpretation Comments Mean Corpuscular Volume (test code = 787-2) 83.6 81-99 [facility] HospitalMean Corpuscular Azqhqhgxsw7003-07-86 16:55:00* Test Item Value Reference Range Interpretation Comments Mean Corpuscular Hemoglobin (test code = 785-6) 26.7 28-32 L [facility] HospitalMean Corpuscular Hemoglobin Concent 2019-06-07 16:55:00* Test Item Value Reference Range Interpretation Comments Mean Corpuscular Hemoglobin Concent (test code = 786-4) 31.9 31-35 [facility] HospitalRed Cell Distribution Oigxc5641-45-80 16:55:00* Test Item Value Reference Range Interpretation Comments Red Cell Distribution Width (test code = 54938-3) 15.8 11.7 -14.4 H [facility] HospitalPlatelet Hdths9333-35-39 16:55:00* Test Item Value Reference Range Interpretation Comments Platelet Count (test code = 777-3) 247 140-360 [facility] HospitalNeutrophils (%) (Auto)2019-06-07 16:55:00 * Test Item Value Reference Range Interpretation Comments Neutrophils (%) (Auto) (test code = 61952-1) 57.8 38.7-80.0 [facility] HospitalLymphocytes (%) (Auto)2019-06-07 16:55:00 * Test Item Value Reference Range Interpretation Comments Lymphocytes (%) (Auto) (test code = 736-9) 34.7 18.0-39.1 [facility] HospitalMonocytes (%) (Auto)2019-06-07 16:55:00* Test Item Value Reference Range Interpretation Comments Monocytes (%) (Auto) (test code = 5905-5) 5.8 4.4-11.3 [facility] HospitalEosinophils (%) (Auto)2019-06-07 16:55:00 * Test Item Value Reference Range Interpretation Comments Eosinophils (%) (Auto) (test code = 713-8) 0.9 0.0-6.0 [facility] HospitalBasophils (%) (Auto)2019-06-07 16:55:00* Test Item Value Reference Range Interpretation Comments Basophils (%) (Auto) (test code = 706-2) 0.5 0.0-1.0 [facility] HospitalIM GRANULOCYTES %2019-06-07 16:55:00* Test Item Value Reference Range Interpretation Comments IM GRANULOCYTES % (test code = IM GRANULOCYTES %) 0.3 0.0- 1.0 [facility] HospitalNeutrophils # (Auto)2019-06-07 16:55:00* Test Item Value Reference Range Interpretation Comments Neutrophils # (Auto) (test code = 751-8) 3.3 2.1-6.9 [facility] HospitalLymphocytes # (Auto)2019-06-07 16:55:00* Test Item Value Reference Range Interpretation Comments Lymphocytes # (Auto) (test code = 23079-9) 2.0 1.0-3.2 [facility] HospitalMonocytes # (Auto)2019-06-07 16:55:00* Test Item Value Reference Range Interpretation Comments Monocytes # (Auto) (test code = 742-7) 0.3 0.2-0.8 [facility] HospitalEosinophils # (Auto)2019-06-07 16:55:00* Test Item Value Reference Range Interpretation Comments Eosinophils # (Auto) (test code = 711-2) 0.1 0.0-0.4 [facility] HospitalBasophils # (Auto)2019-06-07 16:55:00* Test Item Value Reference Range Interpretation Comments Basophils # (Auto) (test code = 704-7) 0.0 0.0-0.1 [facility] HospitalAbsolute Immature Granulocyte (auto 2019-06-07 16:55:00* Test Item Value Reference Range Interpretation Comments Absolute Immature Granulocyte (auto (jp t code = Absolute Immature Granulocyte (auto) 0.02 0-0.1 [facility] HospitalCHEST 2 [id number] 15:33:00 [place] [address] Patient Name: PARTH KHANNA V MR #: [id number] : 1950 Age/Sex: 68/F Req #: [id number] Adm Physician: Ordered by: LUPILLO RUDOLPH MD Report #: [id number] Location: OR Room/Bed: Procedure: 1104-006 4 DX/CHEST [...] 04/05/191533 COPY TO: LUPILLO RUDOLPH MD FALLOPIAN NJUO4626-24-94 16:28:00 RUN DATE: 10/07/18 [employer] PAGE 1 RUN TIME: 1628 Specimen Inqui ry RUN USER: INTERFACE PATIENT: PARTH KHANNA ACCT #: V [id number] LOC: V.PPU U #: [id number] AGE/SX: 67/F ROOM: 2024 RE10/06/18REG DR: Mona Carcamo MD : 46 BED: A DIS: 10/07/18 STATUS: DIS Panda TLOC: SPEC #: [id number] RECD: 10/06/18 STATUS: VONNIE ALVARENGA #: [id number] DONATO: 10/06/18- DR: Mona Carcamo ENTERED: 10/06/18 SP TYPE: FALL TUBE OTHR DR: Buddy May MD ORDERED: GROSS COPIES TO: Buddy May MD [address] [place], [place] [id number] Mona Carcamo MD [address] [place] [address] PROCEDURES: GROSS () TISSUES: FALLOPIAN TUBE, NOS - BILATERAL TUBES AND OVARIES CLINICAL HISTORY COLLECTION DATE: 10/06/2018 FINAL DIAGNOSIS Bilateral fallopian tubes and ovaries, bilateral salpingo-oophorectomy: B ILATERAL OVARIES WITH ATROPHIC CHANGE BILATERAL FIMBRIATED AND TRANSECTED FALLOPIAN TUBES WITH ATROPHIC CHANGE NEGATIVE FOR MALIGNANCY RRB/sm D [phone] MACROSCOPIC The specimen is labeled "bilateral fallopian [...] D ON NEXT PAGE RUN DATE: 10/07/18 [employer] PAGE 2 RUN TIME: 1628 Specimen Inquiry RUN USER: INTERFACE SPEC #: [id number] KEIRY ENT: PARTH KHANNA #[id number] (Continued) MACROSCOPIC (Continued) fallopian tube is unremarkable appea ring. Section code: 1A-1B- sections from one ovary and fallopian tube; 1C-1D- sections from other fallopian tube and ovary. The first ovary and fallopian tube is entirely submitted. GROSS PERFORMED AT [facility] [address] [place] [address] [phone] MICROSCOPIC All of the stains, incl uding any controls performed, stain appropriately. MICROSCOPIC PERFORMED A T [facility] [address] [place] [address] [phone] PERFORMING SITE Diagnosis perfo rmed at: [facility], [address] [place] [address] [phone] Signed SIGNATURE ON FILE David Raymond MD 10/07/18 1628 END OF REPORT CBC W/AUTO [id number] 09:53:00* Test Item Value Reference Range Interpretation [...] DIFF REQUIRED (test code = MDIFF) NO [id number] 08:03:00* Test Item Value Reference Range Interpretation Comments GLUBED (test code = GLUBED) 129 mg/dL 74-106 H Performed by certified multi operation machine operator at [facility] BCXQTS9533-22-03 20:48:00* Test Item Value Reference Range Interpretation Comments GLUBED (test code = GLUBED) 287 mg/dL 74-106 H Performed by certified multi operation machine operator at [facility] JFACWO6328-54-04 11:08:00* Test Item Value Reference Range Interpretation Comments GLUBED (test code = GLUBED) 158 mg/dL 74-106 H Performed by certified multi operation machine operator at [facility] DIXNMZ0476-94-56 07:52:00* Test Item Value Reference Range Interpretation Comments GLUBED (test code = GLUBED) 162 mg/dL 74-106 H Performed by certified multi operation machine operator at [facility] URINALYSIS GICCZFPL3255-98-69 14:39:00* Test Item Value Reference Range Interpretation [...] FEW #/LPF FEW - XR CHEST 2 [id number] 14:39:00 FAX: Buddy Abdul MD [phone] [place]: O St: PRE FAX: Mona Garcia MD [phone] Name: PARTH KHANNA [facility] : 1950 Age/S: 67/F [address] Unit #: [id number] Loc: [place] [address] Phys: Mona Carcamo MD Acct: [id number] Dis Date: Status: PRE SDC PHONE #: [phone] Exam Date: 10/05/2018 1140 FAX #: [phone] Reason: PRE OP EXAMS: CPT CODE: [id number] XR CHEST 2 V 17631 HISTORY: Preop. COMPARISON: August 18, 2008. AP and lateral view of the chest: No acute infiltrates, effusion or congestion. Cardiac and the mediastinal silhouette are normal. IMPRESSION: No acute infiltrates, effusion or congestion. at 1439 Reported and signed by: Elio Malone M.D. CC: Buddy May MD; Mona Carcamo MD Technologist: RT Iliana(Meghan) Trnscrd Date/Time/By: 10/05/2018 (0470) : By: [email or web address] Orig Print D/T: S: 10/05/2018 (9254) PAGE 1 Signed Report URINALYSIS [id number] 14:34:00* Test Item Value Reference Range Interpretation [...] = BACU) per HPF NONE COMPREHENSIVE METABOLIC [id number] 13:18:00* Test Item Value Reference Range Interpretation [...] due to change in reagent. COMPREHENSIVE METABOLIC [id number] 13:06:00* Test Item Value Reference Range Interpretation [...] code = ALKP) IUnit/L 45-117 CBC W/AUTO [id number] 12:57:00* Test Item Value Reference Range Interpretation [...] (test code = MDIFF) NO CBC W/AUTO [id number] 12:49:00* Test Item Value Reference Range Interpretation [...] = BA#) K/mm3 0.0-0.2 CHEST 2 VIEWS [place] [address] Patient Name: PARTH KHANNA V MR #: [id number] : 1950 Age/Sex: 66/F Req #: [id number] Adm Physician: Ordered by: BUDDY MAY MD Report #: [id number] [facility] Room/Bed: Procedure: [id number] DX/CHEST 2 VIEWS Exam Date: 03/05/17 Exam [...] IMPRESSION: No acute cardiopulmonary disease. Dictated by: Wil Roper M.D. on 03/05/2017 at 14:31 Electronically approved by: Wil Roper M.D. on 03/05/2017 at 14:31 Dictated By: WIL ROPER MD Elect ronically Signed By: WIL ROPER MD on 03/05/17 1431 Transcribed By: [facility] Aretha on 03/05/17 1431 COPY TO: BUDDY MAY MD
[2020-01-05] MEDS: HYDROMORPHONE 1MG/1ML INJ IV PRN (17:25)
[2020-01-05] MEDS ORDERED: NALOXONE HCL INJ 0.4 MG/ML AMP IV PRN (17:30)
[2020-01-05] MEDS ORDERED: HYDROMORPHONE 0.2MG/ML-SOD CHL 30ML PCA SYRINGE IV PRN (17:30)
[2020-01-05] MEDS ORDERED: CEFAZOLIN SOD 1 GM VIAL IV SCH (17:45)
--- NOTE | 2020-01-05 17:46 | NUR ---
SPOKE WITH CELIA DAS FOR REPORT. DR RUDOLPH HERE AND VERBAL ORDER DIGITAL MEDIA INTERN DILUADID PUMP AND ANCEF, NS AND CONSENT. ALL VORB TWICE.
--- NOTE | 2020-01-05 18:13 | NUR ---
Patient arrived from ER at 1749. Patient was assessed, repositioned, and oriented to room and procedures. Patient verbalized understanding. Patient is in quite a bit of pain but able to talk. Patient had no further questions at this time. Patient AOx3, call light within reach, bed in lowest position, 2 side rails up.
[2020-01-05 18:19] VITALS: BP 168/79
[2020-01-05 18:38] LABS: CREATINE KINASE MB 2.1 ng/mL (0-5.0)
--- NOTE | 2020-01-05 19:00 | NUR ---
RECEIVED PATIENT IN BEDSIDE SHIFT REPORT. PATIENT RESTING IN BED AT THIS TIME. PAIN 8/10, WAITING FOR PHARMACY TO FILL FORECLOSURE PARALEGAL SYRINGE TO START DILAUDID FORECLOSURE PARALEGAL. ICE PACKS PROVIDED TO PATIENT. ARZATE DRAINING CLEAR, YELLOW URINE TO GRAVITY, HUNG OFF SIDE OF BED, OFF OF FLOOR. BED LOCKED IN LOWEST POSITION, SIDE RAILS UPX2, CALL LIGHT IN REACH, BED ALARM ACTIVE.
[2020-01-05 20:00] VITALS: BP 144/70
--- NOTE | 2020-01-05 21:30 | NUR ---
CONSENT SIGNED AT THIS TIME AND PLACED IN CHART.
[2020-01-05 21:55] VITALS: BP 144/70
--- NOTE | 2020-01-05 22:46 | NUR ---
PATIENT REQUESTED BENADRYL D/T ITCHING FROM PAIN MEDICATION (ALLERGY TO CODEINE, NO KNOWN ALLERGY TO DILAUDID, BUT PATIENT IS EXPERIENCING ITCHING.) PAGED MD Simone MERAZ AT THIS TIME FOR ORDERS.
--- NOTE | 2020-01-05 22:57 | NUR ---
SPOKE WITH MD Simone MERAZ, NEW ORDERS RECEIVED.
[2020-01-05] MEDS: DIPHENHYDRAMINE HCL 25 MG CAP PO PRN (23:10)
[2020-01-06] VITALS: BP 121/72
[2020-01-06 00:14] LABS: CREATINE KINASE MB 2.5 ng/mL (0-5.0)
[2020-01-06] MEDS: SODIUM CHLORIDE 0.9% 1000ML 1,000 ML IV SCH ×2 (00:30→09:16)
--- NOTE | 2020-01-06 00:35 | NUR ---
PATIENT IS POSITIVE FOR ANTIBODIES, SO LAB IS ORDERING 2 UNITS OF BLOOD ON STANDBY IN CASE THEY ARE NEEDED DURING SURGERY.
[2020-01-06 04:00] VITALS: BP 135/67
[2020-01-06 04:47] LABS: BASOPHILS # (AUTO) 0.1 (0.0-0.1); BASOPHILS % 0.5 % (0.0-1.0); EOSINOPHILS % 0.3 % (0.0-6.0); HEMATOCRIT 30.2 % (34.2-44.1); HEMOGLOBIN 9.5 g/dL (12.0-16.0); LYMPHOCYTES # (AUTO) 2.1 (1.0-3.2); LYMPHOCYTES % 22.1 % (18.0-39.1); MEAN CORPUSCULAR HEMOGLOBIN 25.9 pg (28-32); MEAN CORPUSCULAR HGB CONC 31.5 g/dL (31-35); MEAN CORPUSCULAR VOLUME 82.3 fL (81-99); MONOCYTES # (AUTO) 0.6 (0.2-0.8); MONOCYTES % 6.4 % (4.4-11.3); NEUTROPHILS # (AUTO) 6.6 (2.1-6.9); NEUTROPHILS % 70.3 % (38.7-80.0); PLATELET COUNT 194 x10e3/uL (140-360); RED BLOOD COUNT 3.67 x10e6/uL (3.6-5.1); RED CELL DISTRIBUTION WIDTH 15.2 % (11.7-14.4)
[2020-01-06 05:16] LABS: ALBUMIN 3.5 g/dL (3.5-5.0); ANION GAP 13.7 mmol/L (8-16); CALCIUM 8.1 mg/dL (8.4-10.2); CREATININE, SERUM 1.02 mg/dL (0.57-1.11); POTASSIUM 3.7 mmol/L (3.5-5.1)
[2020-01-06 05:34] LABS: CREATINE KINASE MB 2.5 ng/mL (0-5.0)
[2020-01-06] MEDS ORDERED: CEFAZOLIN SOD 2 GM/D5W 50ML 50 ML IV ONE (06:00)
[2020-01-06] MEDS: DIPHENHYDRAMINE HCL 25 MG CAP PO PRN ×3 (06:00→22:21)
[2020-01-06 07:24] VITALS: BP 130/51
[2020-01-06 08:00] VITALS: BP 130/51
[2020-01-06] MEDS ORDERED: BACITRACIN 50,000 UNIT VIAL ONE (09:15)
[2020-01-06] MEDS ORDERED: CLINDAMYCIN PHOS 900MG/ 50ML 50 ML IV ONE (10:35)
[2020-01-06] MEDS ORDERED: SEVOFLURANE INHAL SOLN 250 ML PEN BTL ONE (11:00)
[2020-01-06] MEDS ORDERED: ONDANSETRON HCL INJ 2MG/ML 2ML 2 MG/ML VIAL ONE ×2 (11:00→13:39)
[2020-01-06] MEDS ORDERED: LIDOCAINE HCL 2% LOCAL INJ 5 ML SDV VIAL INJ ONE (11:00)
[2020-01-06] MEDS ORDERED: ETOMIDATE 40 MG/ 20ML VIAL IV ONE (11:00)
[2020-01-06] MEDS ORDERED: ONDANSETRON HCL INJ 2MG/ML 2ML 2 MG/ML VIAL IV PRN (12:15)
[2020-01-06] MEDS ORDERED: NALOXONE HCL INJ 0.4 MG/ML AMP IV PRN (12:15)
[2020-01-06] MEDS ORDERED: HYDROMORPHONE 0.2MG/ML-SOD CHL 30ML PCA SYRINGE IV PRN (12:15)
[2020-01-06] MEDS ORDERED: SODIUM CHLORIDE 0.9% 1000ML 1,000 ML IV SCH (12:15)
[2020-01-06] MEDS ORDERED: FENTANYL CITRATE/PF 100MCG/2 ML INJ ONE ×2 (12:38→19:43)
[2020-01-06] MEDS ORDERED: HYDROMORPHONE 0.2MG/ML-SOD CHL 30ML PCA SYRINGE IV ONE (12:56)
--- NOTE | 2020-01-06 12:56 | Diagnostic Imaging Report ---
EXAM: HIP LEFT 2-3 VW (+/- PELVIS), FEMUR ONE VIEW LEFT DATE: 01/06/2020 12:34 PM INDICATION: Postop left hip and femur COMPARISON: 01/05/2020 FINDINGS: There are postsurgical changes from interval open reduction and internal fixation of the previously visualized left intertrochanteric proximal femur fracture with placement of intramedullary campbell and fixation screws. Hardware appears intact and in appropriate alignment. No new fracture or dislocation is appreciated. There is expected soft tissue swelling and foci of air identified within the surrounding subcutaneous tissues of the left thigh. Overlying skin pradeep noted. IMPRESSION: Expected postsurgical changes from left femoral ORIF. Signed by: Dr. Chris Mcdowell MD on 01/06/2020 12:53 PM
[2020-01-06] MEDS ORDERED: HYDROMORPHONE 1MG/1ML INJ ONE (12:57)
--- NOTE | 2020-01-06 13:11 | NUR ---
SPOKE WITH LENY ON PHONE AND HE STATES HE WANTS [facility] IN [place]. COMPLETED CHOICE FORM, WHEN PATIENT RETURNS FROM PACU WILL FAX PACKET TO REP FOR DISCHARGE TOMORROW.
[2020-01-06] MEDS ORDERED: LORAZEPAM INJ 2 MG/ML VIAL ONE (13:32)
--- NOTE | 2020-01-06 15:00 | NUR ---
Patient returned from OR at 1500. They stated that the surgery went well. Shoulder immobilizer in place, no surgery done just leaving in immobilizer. Gamma nails placed in right hip covered with 2 dressings. Patient has a new THEATER EDUCATION TEACHER pump and orders that were placed in OR and will be brought with her. Addendum: 01/06/20 at 1650 by Hermila Negro RN Foot pumps placed. Patient IV fluids stopped due to tolerating PO, patient still complains of pain, MD aware, no new orders. Did "Ok" with PT. Patient was explained plan for next few days, that vragas will be removed on 01/07, dressing will be changed on 01/07, continuing PT, and SNF has been started. Will continue to monitor.
[2020-01-06 15:15] VITALS: BP 153/64
[2020-01-06] MEDS: CLINDAMYCIN PHOS 900MG/ 50ML 50 ML IV SCH (16:41)
--- NOTE | 2020-01-06 19:00 | NUR ---
RECEIVED PATIENT IN BEDSIDE SHIFT REPORT. PATIENT A&OX3. PAIN 8/, WASTEWATER PROCESS ENGINEER PUMP ACTIVE. PATIENT REPORTS SEVERE PAIN TO L FOOT, REQUESTS FOOT PUMPS BE TAKEN OFF FOR THE TIME. ICE PACK PLACED TO FOOT PER PATIENT REQUEST. OTHERWISE NO S&S OF DISTRESS NOTED. BED LOCKED IN LOWEST POSITION, SIDE RAILS UPX2, CALL LIGHT IN REACH. ARZATE DRAINING TO GRAVITY, CLEAR YELLOW URINE NOTED. BED PUMP ACTIVE. BED ALARM ACTIVE.
[2020-01-06] MEDS ORDERED: MIDAZOLAM HCL 2 MG/2 ML VIAL ONE (19:43)
[2020-01-06 20:00] VITALS: BP 155/75
--- NOTE | 2020-01-06 21:00 | NUR ---
NO AMOS HOSE TO L LEG, WHICH HAD BEEN PLACED YESTERDAY PRIOR TO SURGERY. PATIENT IS UNABLE TO TOLERATE PUTTING AMOS HOSE BACK ON WELL FOOT PUMPS AT THIS TIME. WILL ATTEMPT TO PLACE IF PAIN DECREASES ENOUGH FOR PATIENT TO TOLERATE.
[2020-01-06] MEDS: ACETAMINOPHEN 1000 MG/100 ML IV PRN (21:06)
--- NOTE | 2020-01-06 22:30 | NUR ---
PATIENT REPORTS PAIN IN FOOT IS BETTER. STATES SHE HAS BEEN MOVING FEET AND LEGS WHILE SHE IS AWAKE TO EASE THE PAIN AND SO SHE IS MORE READY TO WORK WITH PT IN THE MORNING. PATIENT REPORTS KEEPING L HIP IMMOBILE POSSIBLE, BUT STILL MOVING FOOT. NO OTHER S&S OF DISTRESS NOTED. BED LOCKED IN LOWEST POSITION, SIDE RAILS UPX2, CALL LIGHT IN REACH.
[2020-01-07] VITALS (9 sets, daily range): BP systolic 124–155; BP diastolic 59–81
[2020-01-07] MEDS: CLINDAMYCIN PHOS 900MG/ 50ML 50 ML IV SCH ×3 (02:16→18:08)
[2020-01-07] MEDS: ACETAMINOPHEN 1000 MG/100 ML IV PRN ×2 (03:36→14:03)
[2020-01-07 04:40] LABS: HEMATOCRIT 23.8 % (34.2-44.1); HEMOGLOBIN 7.7 g/dL (12.0-16.0)
[2020-01-07] MEDS ORDERED: RIVAROXABAN 10 MG TABLET PO SCH (07:00)
--- NOTE | 2020-01-07 07:19 | NUR ---
Bedside report complete with Soy Negro RN. The patient in bed, INCOME AUDITOR checked and zeroed out. Patient states her pain is at a 5/10 currently.
--- NOTE | 2020-01-07 08:51 | NUR ---
FAXED CLINICALS TO [facility], STARTED MOT AND PUT WITH PACKET.
[2020-01-07] MEDS: LORAZEPAM INJ 2 MG/ML VIAL IV PRN ×2 (10:00→15:57)
--- NOTE | 2020-01-07 10:00 | NUR ---
Patient given Ativan and was able to get out of bed and in a chair with PT.
[2020-01-07] MEDS ORDERED: LORAZEPAM INJ 2 MG/ML VIAL IV ONE (10:20)
[2020-01-07] MEDS ORDERED: SODIUM CHLORIDE 0.9% 250ML 250 ML IV ONE (10:30)
[2020-01-07] MEDS: CYCLOBENZAPRINE HCL 10 MG TAB PO PRN ×3 (10:48→23:15)
--- NOTE | 2020-01-07 11:00 | NUR ---
Patient was helped back to bed and had no complaints of increased pain, continue to monitor. Will give Flexeril when she wakes.
--- NOTE | 2020-01-07 11:59 | NUR ---
Was notified by Telemetry that the patient has had a new run of 10-11 beats of V-Tach. Call Dr. Wilbert Quezada.
--- NOTE | 2020-01-07 12:43 | NUR ---
Dr. Wilbert Quezada called back and consulted Dr. Holt cardiology for abnormal rhythm.
--- NOTE | 2020-01-07 13:23 | NUR ---
REHABILITATION INPATIENT FACILITY DISCHARGE INFORMATION PATIENT HAS BEEN ACCEPTED TO: NAME: [facility] [address]ESS:[address] [facility] ACCEPTING ECHOCARDIOGRAPHER: CHARBEL JOSHI ACCEPTING MD:MARIBELL MONTES ROOM:TO BE GIVEN WHEN CALL REPORT AFTER 4PM NURSE CALL REPORT TO: [phone] IMM SIGNED AND OBTAINED (if applicable): NA THE FOLLOWING DOCUMENTS MUST ACCOMPANY PATIENT FOR TRANSFER: COPIED CHART:PACKET AT NURSES STATION WITH MOT
--- NOTE | 2020-01-07 13:48 | NUR ---
Call consult for Dr. Prabhu Holt, cardiology for run of V-Tach.
--- NOTE | 2020-01-07 14:16 | NUR ---
[facility] Will call Dr. Nguyễn to see if he is ok with transfer.
--- NOTE | 2020-01-07 15:00 | NUR ---
Patient called and asked if the patient was going to transfer to [facility]. As far as today the patient continues to use the ADMISSIONS CLERK and complain of pain and muscle spasm, the patient is still needing blood today, and there is a cardiology consult for abnormal rhythm. The patient does not have transfer orders by Dr. Nguyễn and will not go tonight but may go tomorrow.
[2020-01-07] MEDS: DIPHENHYDRAMINE HCL 25 MG CAP PO PRN ×2 (15:57→23:15)
--- NOTE | 2020-01-07 17:00 | NUR ---
Started blood and the senior staff accountant examined the patients. Orders were given. The patient has a temp of 99.4 and the blood is transfusing.
[2020-01-07] MEDS ORDERED: SODIUM CHLORIDE 0.9% 250ML 250 ML ONE ×2 (17:08→19:50)
--- NOTE | 2020-01-07 19:05 | NUR ---
received report from day nurse. patient is resting comfortably in the bed. bed is in lowest position and call light is within reach.
--- NOTE | 2020-01-07 20:05 | NUR ---
second unit of blood has started infusing. no adverse reactions noted.
--- NOTE | 2020-01-07 21:20 | Consultation ---
DATE OF CONSULTATION: 01/07/2020 Cardiology Consultation REQUESTING PHYSICIAN: Dr. Quezada. REASON FOR CONSULTATION: Nonsustained ventricular tachycardia. HISTORY OF PRESENT ILLNESS: This is a 69-year-old woman with history of hypertension, hyperlipidemia, diabetes mellitus, and anxiety who presents after a fall. The patient reports that she skidded over an object leading to her fall. Denied any chest pain, palpitations, or dizziness prior. She denies any cardiac symptoms at this time including chest pain, palpitations, shortness of breath, edema, orthopnea, PND, or lightheadedness. On evaluation in the ER, she was found to have a left intertrochanteric proximal femur fracture as well as an acute mildly displaced greater tuberosity of the left proximal humerus fracture. The patient is status post left femoral ORIF by Orthopedic Surgery. While the patient was admitted, she was noted to have an episode of nonsustained atrial tachycardia for which Cardiology is consulted. REVIEW OF SYSTEMS: Negative except as per HPI. PAST MEDICAL HISTORY: 1. Hypertension. 2. Hyperlipidemia. 3. Diabetes mellitus. 4. Anxiety. PAST SURGICAL HISTORY: 1. Total hysterectomy. 2. Carpal tunnel surgery. 3. Right hip replacement. 4. Left femoral fracture repair. 5. Rotator cuff surgery. ALLERGIES: PLEASE SEE EMR. MEDICATIONS: Please see medication list. SOCIAL HISTORY: She currently uses e cigarettes on occasion. She previously smoked 1-1/2 packs a day for 30 years. She drinks wine coolers on occasion. Denies any illicit drugs. FAMILY HISTORY: Pertinent for mother and sister with heart failure. PHYSICAL EXAMINATION: VITAL SIGNS: Temperature 97.9 degrees, pulse 95, respiratory rate 16, blood pressure 134/61, and oxygen saturation 98% on room air. GENERAL: An elderly woman, in no acute distress, awake, alert. HEENT: Normocephalic, atraumatic. Pupils are equal. No scleral icterus. NECK: Supple. No thyromegaly or cervical lymphadenopathy. No carotid bruits. LUNGS: Clear to auscultation bilaterally. No wheezes or crackles. HEART: Normal rate, regular rhythm. No murmur. Normal S1, S2. ABDOMEN: Soft, nontender. EXTREMITIES: No edema. Sling on the left upper extremity. Dressing intact in the left lower extremity. LABORATORY DATA: Hemoglobin 7.7, hematocrit 23.8. TELEMETRY: Telemetry was personally reviewed and interpreted revealing nonsustained ventricular tachycardia. IMPRESSION: 1. Nonsustained ventricular tachycardia. 2. Left intertrochanteric proximal femur fracture status post repair. 3. Left proximal humerus fracture. 4. Hypertension. 5. Hyperlipidemia. 6. Diabetes mellitus. RECOMMENDATIONS: Obtain echocardiogram. Trend cardiac biomarkers. Check electrolytes. Replete as necessary. If echocardiogram is unremarkable and the patient rules out for myocardial infarction, no further cardiac evaluation will be indicated at this time. Continue home cardiac medications including atorvastatin and lisinopril. Thank you for this consult. We will continue to follow. Nicolle Stephenson MD ABS/MODL /[id number]
--- NOTE | 2020-01-07 22:41 | NUR ---
second unit of blood is done transfusing. no adverse reactions noted.
[2020-01-08] VITALS: BP 154/66
[2020-01-08] MEDS: CLINDAMYCIN PHOS 900MG/ 50ML 50 ML IV SCH ×2 (01:37→09:46)
[2020-01-08 04:00] VITALS: BP 154/68
[2020-01-08 04:55] LABS: HEMATOCRIT 30.7 % (34.2-44.1); HEMOGLOBIN 10.2 g/dL (12.0-16.0)
[2020-01-08] MEDS: LORAZEPAM INJ 2 MG/ML VIAL IV PRN (04:57)
[2020-01-08 05:18] LABS: ANION GAP 14.5 mmol/L (8-16); BLOOD UREA NITROGEN 10 mg/dL (7-26); BUN/CREATININE RATIO 12 (6-25); CALCIUM 7.7 mg/dL (8.4-10.2); CARBON DIOXIDE 21 mmol/L (22-29); CHLORIDE 105 mmol/L (98-107); CREATININE, SERUM 0.85 mg/dL (0.57-1.11); EST GLOMERULAR FILTRATION RATE > 60 ML/MIN (60-); GLUCOSE 168 mg/dL (74-118); POTASSIUM 3.5 mmol/L (3.5-5.1); SODIUM 137 mmol/L (136-145)
--- NOTE | 2020-01-08 06:30 | NUR ---
vargas catheter has been discontinued in accordance with MD's orders.
[2020-01-08] MEDS ORDERED: RIVAROXABAN 10 MG TABLET PO SCH (07:00)
--- NOTE | 2020-01-08 07:14 | NUR ---
report given to day nurse.patient is resting in bed. bed is in lowest position and call light is within reach.
[2020-01-08 08:00] VITALS: BP 162/72
[2020-01-08 08:45] VITALS: BP 162/72
--- NOTE | 2020-01-08 09:03 | NUR ---
Pt did not transfer to [facility] yesterday. Pt received 2 units of PRBCs last night. Nurse today states pt is having an Echo at this time, and cardiology will need to clear for transfer. Notified Nela, on-call liaison with [facility] [phone] of this.
[2020-01-08] MEDS: CYCLOBENZAPRINE HCL 10 MG TAB PO PRN (09:46)
[2020-01-08 12:38] VITALS: BP 132/88
--- NOTE | 2020-01-08 13:54 | NUR ---
Diogenes RN stated wafer fabrication operator approved transfer to [facility] today. Notified Nela. MOT to nurse, notified Yumiko DAScyber systems administrator. PT to transfer today.
--- NOTE | 2020-01-08 14:14 | NUR ---
REPORT CALLED TO SINGH Nichols LVN AT [facility] AT [facility]8. LENY, PATIENT'S SPOUSE NOTIFIED OF PENDING TRANSFER.
[2020-01-08] MEDS: HYDROMORPHONE 1MG/1ML INJ IV PRN (14:44)
--- NOTE | 2020-01-08 15:14 | Progress Note ---
DATE: Internal Medicine Progress Note SUBJECTIVE: The patient is status post left hip fracture repair, awaiting transfer to inpatient rehab. PHYSICAL EXAMINATION: HEART: Showed regular rhythm. Normal S1, S2 sound. LUNGS: Clear bilaterally. ABDOMEN: Soft. EXTREMITIES: Show no edema. VITAL SIGNS: Blood pressure 162/72, temperature 98.9, heart rate 88 per minute, respiratory rate 19 per minute, O2 saturation 95%. LABORATORY DATA: On the CBC; white blood count 9.38, hemoglobin 10.2, hematocrit 30.7, and platelet count a 184,000. On the BMP; sodium 137, potassium 3.5, chloride 105, CO2 21, BUN 10, creatinine 0.85, glucose 168, calcium 7.7, magnesium 1.7. FINAL IMPRESSION: 1. Left hip fracture, status post left hip fracture repair. 2. Hypertension. 3. Obesity. 4. Acute anemia. PLAN OF TREATMENT: Continue pain control. Continue patient on compression therapy. The patient is going to be transferred to inpatient rehab once accepted. The labs have been reviewed. [employer] reports have been reviewed as I said, we are waiting for the transfer to an inpatient rehab. MD ALEXI Bell/ANDRES /[id number]
--- NOTE | 2020-01-08 17:14 | Progress Note ---
DATE: 01/08/2020 Cardiology Progress Note. SUBJECTIVE: The patient denies chest pain or shortness of breath. She reports her leg is hurting while working with physical therapy. OBJECTIVE: VITAL SIGNS: Temperature 97.8 degrees, pulse 87, respiratory rate 20, blood pressure 132/80, oxygen saturation 100% on room air. GENERAL: Awake, alert, elderly woman, in no acute distress. LUNGS: Clear to auscultation bilaterally. No wheezes or crackles. HEART: Normal rate. Regular rhythm. No murmur. Normal S1, S2. ABDOMEN: Soft and nontender. EXTREMITIES: No edema. Sling present on the left upper extremity. CARDIAC MEDICATIONS: Xarelto 10 mg p.o. daily. LABORATORY DATA: Sodium 137, potassium 3.5, chloride 105, CO2 of 21, BUN 10, and creatinine 0.85. Troponin 0.019. Magnesium 1.7. TELEMETRY: Telemetry was personally reviewed and interpreted revealing a normal sinus rhythm. IMPRESSION: 1. Nonsustained ventricular tachycardia. 2. Left intertrochanteric proximal femur fracture status post repair. 3. Left proximal humerus fracture. 4. Hypertension. 5. Hyperlipidemia. 6. Diabetes mellitus. RECOMMENDATIONS: Echocardiogram with normal LV systolic function, although exam was limited due to inability to obtain apical images secondary to left humerus fracture. There is no evidence of myocardial infarction on serial cardiac troponin. We will replete electrolytes and potassium with goal of potassium above 4 and magnesium above 2. No further cardiac evaluation is indicated at this time. Resume home cardiac medications including atorvastatin and lisinopril. Thank you for this consult. We will continue to follow. Nicolle Stephenson MD ABS/MODL /[id number]
--- NOTE | 2020-01-25 02:37 | Discharge Summary ---
CHIEF COMPLAINT: Status post falls. FINAL DIAGNOSES: Left hip fracture. HOSPITAL COURSE: A 69-year-old female, brought to the ER after tripping and falling over a dog, sustaining injury to the left shoulder and left hip. She underwent workup and evaluation in the ER. Findings were showing a mild displaced fracture, left proximal femur, fracture of shoulder. Monitored further, admitted to facility for treatment regarding an acute traumatic left hip, left shoulder fracture, diabetes type 2, anxiety, GERD, hyperlipidemia. The patient will be started on analgesics, request Ortho followup. We will also be monitoring the patient's blood sugar. Orthopedic surgical procedure on 01/07/2020. Additional consultation with Dr. Stephenson, Cardiology due to findings of a nonsustained ventricular tachycardia. Following her review, her impression was nonsustained ventricular tachycardia, left intertrochanteric proximal femur fracture, status post repair, left proximal humerus fracture, hypertension, hyperlipidemia, diabetes mellitus. We will be obtaining an echocardiogram. Continue to trend cardiac biomarkers. Continue cardiac medications including atorvastatin and lisinopril. Orthopedic followup shows fracture of the left posterior humerus, mild displacement, left fracture in the intertrochanteric region. The patient was on the Med-Surg floor. She underwent open reduction and internal fixation of the femur. Postprocedure, she was complaining pain of the left hip and left shoulder. She was on a PRISON TEACHER pump postop, receiving some PT and OT and blood sugars were being monitored. Her daily medications were being given. Continued to be reviewed postop by Orthopedic. The patient improved and was able to be discharged in stable condition. She will be discharged to [facility] in [place] for postop rehab regarding her fracture, surgical correction. Imaging; because of her fall, she underwent numerous x-rays. CT of head and neck shows no acute posttraumatic intracranial hemorrhage. Mild chronic microvascular ischemic changes. No acute fracture or dislocation. . Routine chest x-ray shows acute left proximal humerus greater tuberosity fracture described in greater detail on designated left shoulder x-ray. Left hip reveals acute comminuted, mildly displaced intertrochanteric left proximal femur fracture. Shoulder x-ray shows acute mildly displaced greater tuberosity of the left proximal humerus fracture. Postop x-rays, left hip and femur shows expected postsurgical changes from the left femoral ORIF. She did receive 2 units of packed RBCs postprocedure. CBC shows initial white cell count of 17,300. Initial H and H were 11.1 and 34.0. Followup white cell count was normal. Postsurgical H and H levels fell to 7.7 to 23.8, requiring transfusion. Followup H and H were 10.2 to 30.7 post transfusion. Urinalysis unremarkable. Chemistry, initial panel, potassium slightly low at 3.3. Kidney function stable. Glucose 240. Followup potassium was normal. Further glucose levels were conducted, values were as high as 245. Final study . The patient was responding, will be required additional PT and OT postsurgical recovery time, and the patient was transferred to [facility] in [place] and will be covered by my associate Dr. Monk at that facility. The patient will continue on her current MAR sheet, continue on her current diet. She will be undergoing rehab at that facility. Dictated by MILEY Walker Jitendra Quezada MD CC/MODL /[id number]
--- NOTE | 2020-01-31 15:28 | Operative Report ---
DATE OF PROCEDURE: 01/06/2020 SURGEON: Paco Nguyễn MD PREOPERATIVE DIAGNOSIS: Comminuted left intertrochanteric femur fracture. POSTOPERATIVE DIAGNOSIS: Comminuted left reverse subtrochanteric femur fracture. OPERATIONS AND PROCEDURES PERFORMED: 1. The patient underwent closed reduction of the left comminuted subtrochanteric femur fracture. 2. Gamma nail stabilization of the left reversed comminuted subtrochanteric femur fracture. LABORATORY DIRECTOR: There was no residential real estate assistant. ANESTHESIA: General endotracheal intubation anesthesia. IV FLUIDS: As per the anesthesia record. BRIEF DESCRIPTION OF THE PATIENT'S OPERATIVE PROCEDURE: Ms. Bhardwaj was taken to the operating room and placed in supine position on the fracture table. Following induction of general anesthesia as well as endotracheal intubation, the patient's left lower extremity is placed in a well-padded longitudinal traction. The right lower extremity is placed in a well-padded lithotomy position. Fluoroscopic evaluation of the hip joint demonstrated a reverse subtrochanteric femur fracture; the fracture was in multiple pieces. The hip was manipulated under anesthesia and traction was placed across the patient's fracture site; this resulted in acceptable realignment of the patient's injury in both the AP and lateral planes. The patient's thigh and flank were then prepped and draped in the standard surgical fashion. The case was begun by creating an incision at the level of the greater trochanter on the left; this incision was carried through skin only. Blunt dissection used to deepen the incision to the level of tensor fascia titus and gluteus stepan fascia. These were divided in line with the skin lesion. Blunt dissection was then used to deepen the incision to the level of the tip of the trochanter. A cannulated awl was placed on the tip of the trochanter and advanced within the femur under direct fluoroscopic visualization. The position of the awl was checked in both AP and lateral planes. A guidewire was then passed within the femoral canal to the level of the knee. The position of the guidewire was again confirmed using fluoroscopy in the AP and lateral planes. Sequential reaming was then done. An appropriate size nail was chosen and inserted using hand pressure only. The guide for the compression screw was then placed against the lateral aspect of the femur and incision was made in the appropriate position. Again, combinations of sharp and blunt dissection were used to gain access to the lateral aspect of the femur. The compression guide was placed in the lateral aspect of the femur and a guide pin was inserted from lateral to medial through the neck into the head of the femur. The position of this guide pin was again assessed fluoroscopically in the AP and lateral plane, and found to be in an appropriate position. Measurements were taken and a reamer was used to create a channel for the implant. A compression screw was inserted across the patient's fracture site and advanced into the head. Compression was then placed across the patient's fracture and a compression screw was then locked to allow for further compression, but to prevent rotation. Fluoroscopic evaluation of the proximal femur demonstrated, continued acceptable alignment of the patient's reverse subtrochanteric injury. The nail was then locked distally using two screws in a freehand technique. All wounds were then copiously irrigated. The wounds were closed in a multilayer fashion. Sterile dressings were applied and the patient was then awakened, and taken to the Postanesthesia Care Unit in stable condition. MD JAIDA Gaming/ANDRES /[id number]
== END 2020-01-08 16:32 | DRG 481 ==
LOC: ER 14:22 → ERHOLD 16:22 → MED/SURG 17:56
PROC: 0QS736Z Reposition Left Upper Femur with Intramedullary Internal Fixation Device, Percutaneous Approach (ICD-10-PCS; principal; 2020-01-06 10:30)
PROC: 30233N1 Transfusion of Nonautologous Red Blood Cells into Peripheral Vein, Percutaneous Approach (ICD-10-PCS; 2020-01-07)
DX: S72.002A Fracture of unspecified part of neck of left femur, initial encounter for closed fracture (principal); S42.202A Unspecified fracture of upper end of left humerus, initial encounter for closed fracture; E11.9 Type 2 diabetes mellitus without complications; K21.9 Gastro-esophageal reflux disease without esophagitis; E78.5 Hyperlipidemia, unspecified; Z11.59 Encounter for screening for other viral diseases; D64.9 Anemia, unspecified; E66.9 Obesity, unspecified; Z68.26 Body mass index [BMI] 26.0-26.9, adult; F41.9 Anxiety disorder, unspecified; I10 Essential (primary) hypertension; S72.22XA Displaced subtrochanteric fracture of left femur, initial encounter for closed fracture; W19.XXXA Unspecified fall, initial encounter
CPT/HCPCS: 36415; 51700; 70450; 71045; 72125; 76000; 80048; 80053; 81001; 82550; 82553; 82948; 83735; 84484; 85014; 85018; 85025; 85610; 85730; 86850; 86870; 86880; 86900; 86905; 86920; 86922; 93005; 93306; 96361; 97139; 99001; 99284; C1713; J0690; J1170; J2001; J2060; J2250; J2270; J2405; J3010; J7030; J7050; P9016; U0002

== ENCOUNTER → 2020-03-01 | Outpatient (RCR) | payer MEDICARE, OTHER | LOC: PT 15:52 | PROVIDERS: ATTEND Specialist | DX: M25.512 Pain in left shoulder (principal); M25.612 Stiffness of left shoulder, not elsewhere classified; M25.552 Pain in left hip; M25.652 Stiffness of left hip, not elsewhere classified; M62.81 Muscle weakness (generalized); R26.89 Other abnormalities of gait and mobility ==

== ENCOUNTER 2020-03-31 14:26 | Outpatient (RCR) | payer MEDICARE, OTHER | END 2020-04-01 | LOC: PT 14:26 | PROVIDERS: ATTEND Specialist | DX: S42.202D Unspecified fracture of upper end of left humerus, subsequent encounter for fracture with routine healing (principal); M25.512 Pain in left shoulder; M25.612 Stiffness of left shoulder, not elsewhere classified; M25.552 Pain in left hip; M25.652 Stiffness of left hip, not elsewhere classified; M62.81 Muscle weakness (generalized); R26.89 Other abnormalities of gait and mobility | CPT/HCPCS: 97139 ==

== ENCOUNTER 2020-04-24 15:00 | Outpatient (RCR) | payer MEDICARE, OTHER | END 2020-05-01 | LOC: PT 15:00 | PROVIDERS: ATTEND Specialist | DX: S42.202D Unspecified fracture of upper end of left humerus, subsequent encounter for fracture with routine healing (principal); M25.552 Pain in left hip; R26.89 Other abnormalities of gait and mobility; M25.512 Pain in left shoulder; M25.612 Stiffness of left shoulder, not elsewhere classified ==

== ENCOUNTER 2020-05-04 14:00 | Outpatient (RCR) | payer MEDICARE, OTHER | END 2020-06-01 | LOC: PT 14:00 | PROVIDERS: ATTEND Specialist | DX: S42.202D Unspecified fracture of upper end of left humerus, subsequent encounter for fracture with routine healing (principal) ==

== ENCOUNTER → 2021-02-15 | Outpatient (CLI) | payer MEDICARE, OTHER | LOC: US 08:46 | PROVIDERS: ATTEND Family Medicine | DX: R10.11 Right upper quadrant pain (principal) | CPT/HCPCS: 76700 ==

== ENCOUNTER 2021-11-21 16:58 | Outpatient (RCR) | payer MEDICARE, OTHER | END 2021-11-29 | LOC: PT 16:58 | PROVIDERS: ATTEND Internal Medicine | DX: M48.07 Spinal stenosis, lumbosacral region (principal) ==

== ENCOUNTER 2021-12-27 13:55 | Outpatient (RCR) | payer MEDICARE, OTHER | END 2021-12-30 | LOC: PT 13:55 | PROVIDERS: ATTEND Internal Medicine | DX: M48.07 Spinal stenosis, lumbosacral region (principal) ==

== ENCOUNTER 2022-01-25 13:58 | Outpatient (RCR) | payer MEDICARE, OTHER | END 2022-01-30 | LOC: PT 13:58 | PROVIDERS: ATTEND Internal Medicine | DX: M48.07 Spinal stenosis, lumbosacral region (principal) | CPT/HCPCS: 97010; 97035; 97110 ×9; 97165; L3906 ==